=== PATIENT | male | born 1955 ===

== ENCOUNTER 2020-03-02 12:05 | Outpatient (REF) | payer MEDICAID, SELFPAY ==
[2020-03-02 14:13] LABS: Estimated Average Glucose 117 mg/dL; Hemoglobin A1c % 5.7 %
[2020-03-02 14:39] LABS: Alanine Aminotransferase 21 U/L (0-40); Albumin Level 4.8 g/dL (3.5-5.0); Alkaline Phosphatase 63 U/L (39-117); Anion Gap 16 (12-20); Aspartate Amino Transferase 20 U/L (5-37); Bilirubin Direct 0.3 mg/dL (0.0-0.5); Bilirubin Total 0.7 mg/dL (0.0-1.0); Blood Urea Nitrogen 11 mg/dL (9-16); Calcium 9.8 mg/dL (8.4-10.2); Carbon Dioxide 26 mmol/L (22-29); Chloride 102 mmol/L (96-108); Estimated Glomerular Filt Rate > 60; Glucose Random 99 mg/dL (60-115); Potassium 4.8 mmol/l (3.3-5.1); Sodium 139 mmol/L (135-145); Total Protein 7.8 g/dL (6.5-8.0)
== END 2020-03-02 12:06 | disposition home or self-care (01) ==
LOC: HO.HMGCLDS 12:05
PROVIDERS: PCP Internal Medicine; Visit Provider Internal Medicine
DX: E78.9 Disorder of lipoprotein metabolism, unspecified (principal); I10 Essential (primary) hypertension; R73.01 Impaired fasting glucose
CPT/HCPCS: 36415; 80048; 80076; 83036

== ENCOUNTER 2020-08-10 07:59 | Outpatient (REF) | payer MEDICAID, SELFPAY ==
[2020-08-10 12:03] LABS: Alanine Aminotransferase 32 U/L (0-40); Albumin Level 4.6 g/dL (3.5-5.0); Alkaline Phosphatase 61 U/L (39-117); Anion Gap 16 (12-20); Aspartate Amino Transferase 18 U/L (5-37); Bilirubin Total 0.9 mg/dL (0.0-1.0); Blood Urea Nitrogen 10 mg/dL (9-16); Calcium 9.8 mg/dL (8.4-10.2); Carbon Dioxide 23 mmol/L (22-29); Chloride 106 mmol/L (96-108); Cholesterol 189 mg/dL; Estimated Glomerular Filt Rate > 60; Glucose Fasting 113 mg/dL (60-99); HDL Cholesterol 43 mg/dL; LDL Cholesterol Calculated 114 mg/dl; Potassium 4.6 mmol/L (3.3-5.1); Sodium 140 mmol/L (135-145); Total Protein 7.7 g/dL (6.5-8.0); Triglycerides 162 mg/dL
== END 2020-08-10 08:00 | disposition home or self-care (01) ==
LOC: HO.HMGCLDS 07:59
PROVIDERS: PCP Internal Medicine; Visit Provider Internal Medicine
DX: I10 Essential (primary) hypertension (principal); E78.9 Disorder of lipoprotein metabolism, unspecified; R73.01 Impaired fasting glucose
CPT/HCPCS: 36415; 80053; 80061

== ENCOUNTER 2021-05-04 07:57 | Outpatient (REF) | payer MEDICAID, SELFPAY ==
[2021-05-04 08:58] LABS: Alanine Aminotransferase 26 U/L (0-40); Albumin Level 4.6 g/dL (3.5-5.0); Alkaline Phosphatase 53 U/L (39-117); Anion Gap 13 (12-20); Aspartate Amino Transferase 18 U/L (5-37); Bilirubin Total 0.9 mg/dL (0.0-1.0); Blood Urea Nitrogen 8 mg/dL (9-16); Calcium 10.2 mg/dL (8.4-10.2); Carbon Dioxide 27 mmol/L (22-29); Chloride 105 mmol/L (96-108); Cholesterol 173 mg/dL; Estimated Glomerular Filt Rate > 60; Glucose Fasting 133 mg/dL (60-99); HDL Cholesterol 44 mg/dL; LDL Cholesterol Calculated 109 mg/dl; Potassium 4.7 mmol/L (3.3-5.1); Sodium 140 mmol/L (135-145); Total Protein 7.5 g/dL (6.5-8.0); Triglycerides 104 mg/dL
[2021-05-08 13:36] LABS: Vitamin D 25-OH, D2 <4 ng/mL; Vitamin D 25-OH, D3 46 ng/mL; Vitamin D 25-OH, Total 46 ng/mL (30-100)
== END 2021-05-04 07:58 | disposition home or self-care (01) ==
LOC: HO.LAB 07:57
PROVIDERS: PCP Internal Medicine; Visit Provider Internal Medicine
DX: R73.01 Impaired fasting glucose (principal); E78.5 Hyperlipidemia, unspecified; E55.9 Vitamin D deficiency, unspecified
CPT/HCPCS: 36415; 80053; 80061; 82306

== ENCOUNTER 2021-10-17 08:05 | Outpatient (REF) | payer MEDICAID, SELFPAY ==
[2021-10-17 09:48] LABS: Alanine Aminotransferase 25 U/L (0-40); Albumin Level 4.6 g/dL (3.5-5.0); Alkaline Phosphatase 54 U/L (39-117); Anion Gap 16 (12-20); Aspartate Amino Transferase 18 U/L (5-37); Bilirubin Total 0.6 mg/dL (0.0-1.0); Blood Urea Nitrogen 11 mg/dL (9-16); Calcium 9.6 mg/dL (8.4-10.2); Carbon Dioxide 24 mmol/L (22-29); Chloride 105 mmol/L (96-108); Cholesterol 191 mg/dL; Estimated Glomerular Filt Rate > 60; Glucose Fasting 130 mg/dL (60-99); HDL Cholesterol 48 mg/dL; LDL Cholesterol Calculated 118 mg/dl; Potassium 4.5 mmol/L (3.3-5.1); Sodium 140 mmol/L (135-145); Total Protein 7.6 g/dL (6.5-8.0); Triglycerides 125 mg/dL
[2021-10-17 10:11] LABS: Vitamin D 25-OH Total 44.1 ng/mL (>30)
== END 2021-10-17 08:06 | disposition home or self-care (01) ==
LOC: HO.LAB 08:05
PROVIDERS: PCP Internal Medicine; Visit Provider Internal Medicine
DX: E78.5 Hyperlipidemia, unspecified (principal); R73.02 Impaired glucose tolerance (oral); E55.9 Vitamin D deficiency, unspecified
CPT/HCPCS: 36415; 80053; 80061; 82306

== ENCOUNTER 2022-02-25 07:19 | Outpatient (REF) | payer MEDICAID, SELFPAY ==
[2022-02-25 08:30] LABS: Alanine Aminotransferase 21 U/L (0-40); Albumin Level 4.4 g/dL (3.5-5.0); Alkaline Phosphatase 51 U/L (39-117); Anion Gap 13 (12-20); Aspartate Amino Transferase 19 U/L (5-37); Bilirubin Total 0.9 mg/dL (0.0-1.0); Blood Urea Nitrogen 14 mg/dL (9-16); Calcium 9.9 mg/dL (8.4-10.2); Carbon Dioxide 25 mmol/L (22-29); Chloride 105 mmol/L (96-108); Cholesterol 171 mg/dL; Estimated Glomerular Filt Rate > 60; Glucose Fasting 134 mg/dL (60-99); HDL Cholesterol 44 mg/dL; LDL Cholesterol Calculated 104 mg/dl; Potassium 4.4 mmol/L (3.3-5.1); Sodium 139 mmol/L (135-145); Total Protein 7.4 g/dL (6.5-8.0); Triglycerides 116 mg/dL
[2022-02-25 08:50] LABS: Vitamin D 25-OH Total 36.8 ng/mL (>30)
== END 2022-02-25 07:20 | disposition home or self-care (01) ==
LOC: HO.LAB 07:19
PROVIDERS: PCP Internal Medicine; Visit Provider Internal Medicine
DX: E78.00 Pure hypercholesterolemia, unspecified (principal); E55.9 Vitamin D deficiency, unspecified; E78.5 Hyperlipidemia, unspecified
CPT/HCPCS: 36415; 80053; 80061; 82306

== ENCOUNTER 2022-06-30 08:00 | Outpatient (REF) | payer MEDICAID, SELFPAY ==
[2022-06-30 09:05] LABS: Alanine Aminotransferase 19 U/L (0-40); Albumin Level 4.6 g/dL (3.5-5.0); Alkaline Phosphatase 55 U/L (39-117); Anion Gap 15 (12-20); Aspartate Amino Transferase 15 U/L (5-37); Bilirubin Total 0.8 mg/dL (0.0-1.0); Blood Urea Nitrogen 10 mg/dL (9-16); Calcium 10.1 mg/dL (8.4-10.2); Carbon Dioxide 26 mmol/L (22-29); Chloride 107 mmol/L (96-108); Cholesterol 281 mg/dL; Estimated Glomerular Filt Rate > 60; Glucose Fasting 128 mg/dL (60-99); HDL Cholesterol 45 mg/dL; LDL Cholesterol Calculated 206 mg/dl; Potassium 4.6 mmol/L (3.3-5.1); Sodium 143 mmol/L (135-145); Total Protein 7.4 g/dL (6.5-8.0); Triglycerides 151 mg/dL
[2022-06-30 09:22] LABS: Vitamin D 25-OH Total 60.2 ng/mL (>30)
[2022-06-30 10:22] LABS: Microalbum/Creatinine Ratio Ur 24.7 ug/mg cr
== END 2022-06-30 08:01 | disposition home or self-care (01) ==
LOC: HO.LAB 08:00
PROVIDERS: PCP Internal Medicine; Visit Provider Internal Medicine
DX: E11.9 Type 2 diabetes mellitus without complications (principal); E78.5 Hyperlipidemia, unspecified; E55.9 Vitamin D deficiency, unspecified
CPT/HCPCS: 36415; 80053; 80061; 82043; 82306

== ENCOUNTER 2022-10-31 08:01 | Outpatient (REF) | payer MEDICAID, SELFPAY ==
[2022-10-31 08:51] LABS: Alanine Aminotransferase 22 U/L (0-40); Albumin Level 4.5 g/dL (3.5-5.0); Alkaline Phosphatase 54 U/L (39-117); Anion Gap 10 (12-20); Aspartate Amino Transferase 18 U/L (5-37); Bilirubin Total 0.9 mg/dL (0.0-1.0); Blood Urea Nitrogen 11 mg/dL (9-16); Calcium 9.9 mg/dL (8.4-10.2); Carbon Dioxide 27 mmol/L (22-29); Chloride 107 mmol/L (96-108); Cholesterol 235 mg/dL (<200); Estimated Glomerular Filt Rate > 60; Glucose Fasting 122 mg/dL (60-99); HDL Cholesterol 48 mg/dL (>40); LDL Cholesterol Calculated 155 mg/dL (<100); Potassium 4.2 mmol/L (3.3-5.1); Sodium 140 mmol/L (135-145); Total Protein 7.5 g/dL (6.5-8.0); Triglycerides 161 mg/dL (<150)
[2022-10-31 08:58] LABS: Vitamin D 25-OH Total 47.7 ng/mL (>30)
[2022-10-31 12:09] LABS: Creatinine Urine 215.52 mg/dL; Microalbum/Creatinine Ratio Ur 8.3 ug/mg cr (<30)
== END 2022-10-31 08:02 | disposition home or self-care (01) ==
LOC: HO.LAB 08:01
PROVIDERS: PCP Internal Medicine; Visit Provider Internal Medicine
DX: E55.9 Vitamin D deficiency, unspecified (principal); E11.9 Type 2 diabetes mellitus without complications; E78.5 Hyperlipidemia, unspecified
CPT/HCPCS: 36415; 80053; 80061; 82043; 82306; 82570

== ENCOUNTER 2022-11-04 13:42 | Outpatient (AMB) | payer MEDICAID, SELFPAY ==
--- NOTE | 2022-11-04 13:44 | A.OFFPC_ITS ---
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 Accompanied by: Self / Same As Patient Allergies amlodipine Adverse Reaction (Intermediate, Verified 11/04/22 13:55) swelling of feet Medication List - Last Reconciled 11/04/22 by Mag Vila MD blood pressure monitor As directed blood sugar diagnostic (FreeStyle Lite Strips) As directed blood-glucose meter (FreeStyle Lite Meter kit) As directed cholecalciferol (vitamin D3) 25 mcg PO DAILY 90 days ibuprofen 800 mg PO Q8H PRN 30 days lancets (FreeStyle Lancets) As directed losartan 25 mg PO DAILY 90 days metformin 500 mg PO DAILY 90 days rosuvastatin 40 mg (2 x 20 mg) PO BEDTIME 90 days Tobacco use date assessed: 03/03/22 Fall risk assessment: No Falls in past year Last assessed Fall Risk: 11/04/22 Dental Screening Dental Screen Date: 11/04/22 Did you have a dental visit in the last 12 months?: Yes Did you have a dental problem in the last 6 months where you did not have access to dental care?: No Was dental information given to patient?: Patient has dentist HPI HPI Comments History of Present Illness Details This is a 67-year-old male with diabetes mellitus type 2, hypertension and pure hypercholesterolemia that complains of low back pain radiating to the right leg and associated with right leg numbness that has been present for few months. No fever, bowel or bladder incontinence. Will order x-ray and start physical therapy. A1c within goal. Blood pressure borderline normal to elevated. LDL has improved and is not on goal. Patient wants to continue low- cholesterol diet and keep rosuvastatin at 40 mg. He does not want to add or change rosuvastatin. No chest pain or shortness of breath. [facility] Medical History (Updated 11/04/22 @ 14:03 by Mag Vila MD) Lumbar pain Pure hypercholesterolemia Neck pain Hypovitaminosis D Surgical History No pertinent past surgical history Family History Father No problems noted. Mother Cancer of kidney Social History Housing: Apartment Alcohol intake: current Alcohol intake frequency: holidays/special occasions only Alcohol type: beer Patient Tobacco Use Status: Former Tobacco user Tobacco use type: Cigarette e-Cigarette/Vaping Use: Never Used Second Hand Smoke Exposure: No service: No Current occupational status: employed Current occupational exposures/hazards: No Cognitive needs: No Hearing needs: No Vision needs: Yes Questionnaire Thrive Questionnaire Date Thrive assessed: 03/03/22 JEFFREY-7 AMB Questionnaire JEFFREY-7 Date JEFFREY - 7 assessed: 03/03/22 Source: Developed by Drs. Dick Mary, Maile House, Aurelio Jacobs and colleagues, with an educational mariana from [employer]. Review of Systems Const All systems reviewed & are unremarkable except as noted in HPI and below Eyes Reports no additional complaints, Denies change in vision and Denies other visual disturbances Card Denies chest pain at rest, Denies chest pain with activity, Denies edema, Denies irregular heart rhythm, Denies claudication, Denies dyspnea, Denies dyspnea on exertion, Denies orthopnea, Denies paroxysmal nocturnal dyspnea and Denies slow heart rate Resp Denies cough, Denies dyspnea and Denies dyspnea on exertion GI Denies abdominal pain, Denies change in bowel habits, Denies excessive flatus, Denies nausea and Denies vomiting Denies urinary hesitancy, Denies urinary incontinence and Denies urinary urgency Musc Denies abnormal gait, Denies atrophy, Denies deformity and Denies limited range of motion Skin/Breast Denies bleeding lesions, Denies changing lesions and Denies rash Neuro Denies abnormal gait and Denies lack of coordination Physical exam (Primary Care) Vital Signs: Last Vital Signs BP 144/90 H 11/04/22 13:45 BMI result Body Mass Index 25.1 Tobacco/Smoking Status: Tobacco use Status Tobacco use date assessed 03/03/22 11/04/22 13:51 Patient Tobacco Use Status Former Tobacco user 11/04/22 13:51 Tobacco use type Cigarette 11/04/22 13:51 e-Cigarette/Vaping Use Never Used 11/04/22 13:51 Thrive Assessment: Date of Thrive Assessment Date Thrive assessed 03/03/22 11/04/22 13:51 Eyes General: appearance normal, both eyes and all related structures Eyelids: Yes eyelids normal Conjunctivae: conjunctivae normal Neck Neck: Yes normal visual inspection and Yes supple Resp Effort & Inspection: normal respiratory effort Auscultation: clear to auscultation bilaterally Cardio Jugular venous distension: no JVD Rate: regular rate Rhythm: regular rhythm Heart sounds: S1 normal heart sound present and S2 normal heart sound present Extrem General: Yes full ROM Results AMB Hemoglobin A1c AMB Hemoglobin A1c 5.6 % Last Edit by OMI Sullivan on 11/04/22 13:5 5 Assessment and Plan Assessment & Plan (1) Diabetes mellitus: Code(s): E11.9 - Type 2 diabetes mellitus without complications Plan: Continue metformin. A1c goal is equal or less than 7%. (2) Pure hypercholesterolemia: Code(s): E78.00 - Pure hypercholesterolemia, unspecified Plan: Continue statins. Continue low-cholesterol diet. LDL goal is less than 70. (3) Right sided sciatica: Code(s): M54.31 - Sciatica, right side Plan: X-ray ordered. Start physical therapy. (4) Hypertension, essential: Code(s): I10 - Essential (primary) hypertension Plan: Continue losartan. Blood pressure goal is equal or less than 130/80. Orders: Orders AMB Hemoglobin A1c Today E11.9 - Type 2 diabetes mellitus without complications Comprehensive [place]. Panel Fast 4 Months E11.9 - Type 2 diabetes mellitus without complications Vitamin D 25-OH Total 4 Months E55.9 - Vitamin D deficiency, unspecified XR lumbar spine 2-3V Today M54.31 - Sciatica, right side, M54.50 - Low back pain, unspecified Lipid Panel 4 Months E78.5 - Hyperlipidemia, unspecified Coding Level of Care Code Est Pt Level 4 (09070) Diagnoses Diabetes mellitus E11.9 Pure hypercholesterolemia E78.00 Right sided sciatica M54.31 Hypertension, essential I10 Time Spent (min) 24
[2022-11-04 13:45] VITALS: BP 144/90; BMI 25.1
[2022-11-04 14:37] VITALS: BP 140/90
== END 2022-11-04 14:07 | disposition home or self-care (01) ==
PROVIDERS: Visit Provider Internal Medicine
DX: E11.9 Type 2 diabetes mellitus without complications (principal); E78.00 Pure hypercholesterolemia, unspecified; M54.31 Sciatica, right side; I10 Essential (primary) hypertension
CPT/HCPCS: 83036; 99214

== ENCOUNTER 2023-03-04 06:36 | Outpatient (REF) | payer MEDICAID, SELFPAY ==
[2023-03-04 08:32] LABS: Alanine Aminotransferase 21 U/L (0-40); Albumin Level 4.7 g/dL (3.5-5.0); Alkaline Phosphatase 47 U/L (39-117); Anion Gap 12 (12-20); Aspartate Amino Transferase 19 U/L (5-37); Bilirubin Total 0.5 mg/dL (0.0-1.0); Blood Urea Nitrogen 11 mg/dL (9-16); Calcium 9.9 mg/dL (8.4-10.2); Carbon Dioxide 25 mmol/L (22-29); Chloride 106 mmol/L (96-108); Cholesterol 159 mg/dL (<200); Estimated Glomerular Filt Rate > 60; Glucose Fasting 101 mg/dL (60-99); HDL Cholesterol 50 mg/dL (>40); LDL Cholesterol Calculated 91 mg/dL (<100); Sodium 139 mmol/L (135-145); Total Protein 7.8 g/dL (6.5-8.0); Triglycerides 94 mg/dL (<150)
== END 2023-03-04 06:37 | disposition home or self-care (01) ==
LOC: HO.LAB 06:36
PROVIDERS: PCP Internal Medicine; Visit Provider Internal Medicine
DX: E11.9 Type 2 diabetes mellitus without complications (principal); E55.9 Vitamin D deficiency, unspecified; E78.5 Hyperlipidemia, unspecified
CPT/HCPCS: 36415; 80053; 80061; 82306

== ENCOUNTER 2023-03-05 13:11 | Outpatient (AMB) | payer MEDICAID, SELFPAY ==
[2023-03-05 13:12] VITALS: BP 164/78; BMI 25.3
--- NOTE | 2023-03-05 13:12 | MHC.PC.OV ---
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 Accompanied by: Self / Same As Patient Allergies amlodipine Adverse Reaction (Intermediate, Verified 03/05/23 13:25) swelling of feet Medication List - Last Reconciled 03/05/23 by Mag Vila MD blood pressure monitor As directed blood sugar diagnostic (FreeStyle Lite Strips) As directed blood-glucose meter (FreeStyle Lite Meter kit) As directed cholecalciferol (vitamin D3) 25 mcg PO DAILY 90 days ibuprofen 800 mg PO Q8H PRN 30 days lancets (FreeStyle Lancets) As directed losartan 25 mg PO DAILY 90 days metformin 500 mg PO DAILY 90 days rosuvastatin 40 mg PO BEDTIME 90 days Tobacco use date assessed: 03/05/23 Fall risk assessment: No Falls in past year Last assessed Fall Risk: 03/05/23 Dental Screening Dental Screen Date: 03/05/23 Did you have a dental visit in the last 12 months?: Yes Did you have a dental problem in the last 6 months where you did not have access to dental care?: No Was dental information given to patient?: Patient has dentist HPI HPI Comments History of Present Illness Details This is a 67-year-old male with diabetes mellitus type 2, hypertension, pure hypercholesterolemia and low vitamin-D that complains of low back pain that sometimes radiates to the right leg. He denies any fever, bowel or bladder incontinence. Has not received physical therapy yet and I will make an ordered. A1c within goal. Blood pressure elevated and it will be recheck with nurse navigator in 3 weeks. Cholesterol has markedly improved but still LDL is not within goal and I will add Zetia. On vitamin-D supplements for low vitamin-D. [facility] Medical History (Updated 03/05/23 @ 17:24 by Mag Vila MD) Lumbar pain Pure hypercholesterolemia Neck pain Hypovitaminosis D Surgical History No pertinent past surgical history Family History Father No problems noted. Mother Cancer of kidney Social History Housing: Apartment Alcohol intake: current Alcohol intake frequency: holidays/special occasions only Alcohol type: beer Patient Tobacco Use Status: Former Tobacco user Tobacco use type: Cigarette e-Cigarette/Vaping Use: Never Used Second Hand Smoke Exposure: No service: No Current occupational status: employed Current occupational exposures/hazards: No Cognitive needs: No Hearing needs: No Vision needs: Yes Questionnaire PHQ-9 Over the last 2 weeks, how often have you been bothered by any of the following problems? 1. Little interest or pleasure in doing things: not at all 2. Feeling down, depressed, or hopeless: not at all 3. Trouble falling or staying asleep, or sleeping too much: not at all 4. Feeling tired or having little energy: not at all 5. Poor appetite or overeating: not at all 6. Feeling bad about yourself - or that you are a failure or have let yourself or your family down: not at all 7. Trouble concentrating on things, such as reading the newspaper or watching television: not at all 8. Moving or speaking so slowly that other people could have noticed. Or the opposite - being so fidgety or restless that you have been moving around a lot more than usual: not at all 9. Thoughts that you would be better off or of hurting yourself in some way: not at all Total score: 0 Depression Screening Interpretation: Negative Depression Screening Done: Yes 98166 - PHQ-9 Billing: Yes Source: Developed by Drs. Dick Mary, Maile House, Aurelio Jacobs and colleagues, with an educational mariana from [employer]. Thrive Questionnaire Date Thrive assessed: 03/05/23 I am a: Patient What is your living situation today?: I have a steady place to live Within the past 12 months, did the food you bought not last and you didn't have the money to get more?: Never true Within the past 12 months, did you worry whether your food would run out before you got money to buy more?: Never true Do you have trouble paying for medicines?: No Do you have trouble getting transportation to medical appointments?: No Do you have trouble paying your heating and electricity bill?: No Do you have trouble taking care of your child, family member or friend?: No Do you have trouble with day-to-day activities such as bathing, preparing meals, shopping, managing finances, etc.?: No Are you currently unemployed and looking for a job?: No Are you interested in more education?: No Please select the resources that you would like help with: None Currently or been in a relationship where the following occur: no concerns reported THRIVE Score: 0 AUDIT C Alcohol Use Questionnaire (AUDIT-C) 1. How often do you have a drink containing alcohol?: Monthly or less 2. How many drinks containing alcohol do you have on a typical day when you are drinking?: 1 or 2 3. How often do you have six or more drinks on one occasion?: Never Total Score: 1 JEFFREY-7 AMB Questionnaire JEFFREY-7 Date JEFFREY - 7 assessed: 03/05/23 Feeling nervous, anxious, or on edge: 0 = Not at all Not being able to stop or control worryin = Not at all Worrying too much about different things: 0 = Not at all Trouble relaxin = Not at all Being so restless that it is hard to sit still: 0 = Not at all Becoming easily annoyed or irritable: 0 = Not at all Feeling afraid as if something awful might happen: 0 = Not at all Total JEFFREY-7 score (0-4 normal; 5-9 mild; 10-14 moderate; 15-21 severe): 0 Source: Developed by Drs. Dick Mary, Maile House, Aurelio Jacobs and colleagues, with an educational mariana from [employer]. JEFFREY-7 Assessment Billing JEFFREY-7 Assessment Tool: JEFFREY-7 Assessment 60076 Review of Systems Const All systems reviewed & are unremarkable except as noted in HPI and below Eyes Reports no additional complaints, Denies change in vision and Denies other visual disturbances Card Denies chest pain at rest, Denies chest pain with activity, Denies edema, Denies irregular heart rhythm, Denies claudication, Denies dyspnea, Denies dyspnea on exertion, Denies orthopnea, Denies paroxysmal nocturnal dyspnea and Denies slow heart rate Resp Denies cough, Denies dyspnea and Denies dyspnea on exertion GI Denies abdominal pain, Denies change in bowel habits, Denies excessive flatus, Denies nausea and Denies vomiting Denies urinary hesitancy, Denies urinary incontinence and Denies urinary urgency Musc Denies abnormal gait, Denies atrophy, Denies deformity and Denies limited range of motion Skin/Breast Denies bleeding lesions, Denies changing lesions and Denies rash Neuro Denies abnormal gait, Denies behavioral changes and Denies lack of coordination Psych Denies behavioral changes Physical exam (Primary Care) Vital Signs: Last Vital Signs BP 160/70 H 03/05/23 13:30 BMI result Body Mass Index 25.3 Tobacco/Smoking Status: Tobacco use Status Tobacco use date assessed 03/05/23 03/05/23 13:19 Patient Tobacco Use Status Former Tobacco user 03/05/23 13:19 Tobacco use type Cigarette 03/05/23 13:19 e-Cigarette/Vaping Use Never Used 03/05/23 13:19 PHQ-9: PHQ-9 Score PHQ-9: Total score 0 03/05/23 13:27 Depression Screening Interpretation: Negative Thrive Assessment: Date of Thrive Assessment Date Thrive assessed 03/05/23 03/05/23 13:19 Currently or been in a relationship where the following occur: no concerns reported Eyes General: appearance normal, both eyes and all related structures Eyelids: Yes eyelids normal Conjunctivae: conjunctivae normal Neck Neck: Yes normal visual inspection and Yes supple Resp Effort & Inspection: normal respiratory effort Auscultation: clear to auscultation bilaterally Cardio Jugular venous distension: no JVD Rate: regular rate Rhythm: regular rhythm Heart sounds: S1 normal heart sound present and S2 normal heart sound present Extrem General: Yes full ROM Office Procedures Flu Questionnaire Does the patient have a severe egg allergy?: No Results AMB Hemoglobin A1c AMB Hemoglobin A1c 5.6 % Last Edit by OMI Sullivan on 03/05/23 13:22 Immunizations flu vacc [id number] 6mos up(PF) 60 mcg(15 mcgx4)/0.5 mL IM syringe Performing Provider: Mag Vila MD 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 A1c goal is equal or less than 7%. (2) Right sided sciatica: Code(s): M54.31 - Sciatica, right side Plan: Continue Tylenol as needed. Start physical therapy. (3) Pure hypercholesterolemia: Code(s): E78.00 - Pure hypercholesterolemia, unspecified Plan: Continue rosuvastatin. Start Zetia. LDL goal is less than 70. (4) Hypertension, essential: Code(s): I10 - Essential (primary) hypertension Plan: Continue losartan. Blood pressure goal is equal or less than 130/80. Recheck blood pressure with nurse navigator in 3 weeks. (5) Hypovitaminosis D: Code(s): E55.9 - Vitamin D deficiency, unspecified Plan: Continue vitamin-D supplements. Orders: Orders AMB Hemoglobin A1c Today E11.9 - Type 2 diabetes mellitus without complications Comprehensive [place]. Panel Fast 4 Months E11.9 - Type 2 diabetes mellitus without complications PT Evaluation and Treatment 4 Months M54.31 - Sciatica, right side Influenza [id number] Immunization Today Z23 - Encounter for immunization Lipid Panel 4 Months E78.5 - Hyperlipidemia, unspecified Microalbumin, Random (w Creat) 4 Months E11.9 - Type 2 diabetes mellitus without complications Vitamin D 25-OH Total 4 Months E55.9 - Vitamin D deficiency, unspecified Medications: New ezetimibe 10 mg PO DAILY 90 days 90 tabs 1RF E78.00 - Pure hypercholesterolemia, unspecified acetaminophen 1,000 mg (2 x 500 mg) PO Q6H 30 days PRN 240 tabs 0RF fever Discontinued ibuprofen Discontinued Reason: Patient Completed Course 800 mg PO Q8H 30 days PRN 90 tabs 1RF pain Coding Level of Care Code Est Pt Level 4 (33655) Diagnoses Type 2 diabetes mellitus without complication, without long-term current use of insulin E11.9 Diabetes mellitus type: type 2 Diabetes mellitus residential insulin use: without residential use Diabetes mellitus complication status: without complication Right sided sciatica M54.31 Pure hypercholesterolemia E78.00 Hypertension, essential I10 Hypovitaminosis D E55.9 Additional Codes JEFFREY-7 Assessment Billing - JEFFREY-7 Assessment Tool: JEFFREY-7 Assessment 09892 ([id number]) Time Spent (min) 23
[2023-03-05 13:30] VITALS: BP 160/70
== END 2023-03-05 13:35 | disposition home or self-care (01) ==
PROVIDERS: PCP Internal Medicine; Visit Provider Internal Medicine
DX: E11.9 Type 2 diabetes mellitus without complications (principal); M54.31 Sciatica, right side; E78.00 Pure hypercholesterolemia, unspecified; I10 Essential (primary) hypertension; E55.9 Vitamin D deficiency, unspecified
CPT/HCPCS: 83036; 99214

== ENCOUNTER 2023-05-13 13:00 | Outpatient (RCR) | payer MEDICAID, SELFPAY ==
--- NOTE | 2023-04-27 15:20 | MHC.PT.EP ---
[facility] [place] Office [place] [facility] [place] [facility] [address] Jim Doyle [address] [phone] F: [phone] F: [phone] F: [phone] F: [phone] Physical Therapy Plan of Care Date of Evaluation: 04/27/23 Date of Surgery: Diagnosis: R sided sciatica. 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 Pt is deemed an appropriate candidate to receive skilled PT services to address their physical impairments in order to improve their functional ability. Frequency and Duration: The patient will be seen 2 x/ wk x 3 wks. Short Term Goals: Initiate home program. Improve baseline pain to < 4/10; initial: 6/10. Fdc Goals: I with home program. Pt will report no longer disturbed of sleep d/t LBP; initial: 1/4 disturbed night's sleep. Improve Jeremy by at least 9 points. R glute referred Sx abolished. Treatment Plan: Modalities to reduce pain, spasms and effusion. Manual therapy to restore motion and function. Therapeutic exercise to improve strength and flexibility. Neuromuscular re-education for posture and balance. Therapeutic activities to return to functional activities of daily living. Electronically signed by: Mayank Hammonds PT. Please sign and return to therapist. Thank you for your referral.
--- NOTE | 2023-07-27 08:22 | MHC.PT.DC ---
[facility] [place] Office [place] Office [place] Office [address] Jim Doyle [address] [phone] F: [phone] F: [phone] F: [phone] F: [phone] Physical Therapy Discharge Report Diagnosis: R sided sciatica. Date of Surgery: Date of Evaluation: 04/27/23 Date of Discharge: 07/27/23 Treatments to Date: 5 Cancellations to Date: 1 No Shows to Date: 1 Discharge Status: Patient Elected to Stop Discharge Summary: . Electronically signed by: Mayank Hammonds PT. Please sign and return to therapist. Thank you for your referral.
== END 2023-07-27 08:21 | disposition home or self-care (01) ==
LOC: HO.PT 13:00
PROVIDERS: PCP Internal Medicine; Visit Provider Internal Medicine
DX: M54.31 Sciatica, right side (principal)
CPT/HCPCS: 97110; 97140; 97161

== ENCOUNTER 2023-06-27 09:36 | Outpatient (REF) | payer MEDICAID, SELFPAY ==
[2023-06-27 11:17] LABS: Alanine Aminotransferase 32 U/L (0-40); Albumin Level 4.6 g/dL (3.5-5.0); Alkaline Phosphatase 54 U/L (39-117); Anion Gap 12 (12-20); Aspartate Amino Transferase 21 U/L (5-37); Bilirubin Total 0.7 mg/dL (0.0-1.0); Blood Urea Nitrogen 12 mg/dL (9-16); Calcium 9.8 mg/dL (8.4-10.2); Carbon Dioxide 27 mmol/L (22-29); Chloride 106 mmol/L (96-108); Cholesterol 148 mg/dL (<200); Estimated Glomerular Filt Rate > 60; Glucose Fasting 120 mg/dL (60-99); HDL Cholesterol 52 mg/dL (>40); LDL Cholesterol Calculated 81 mg/dL (<100); Sodium 141 mmol/L (135-145); Total Protein 7.5 g/dL (6.5-8.0); Triglycerides 78 mg/dL (<150)
[2023-06-27 11:34] LABS: Vitamin D 25-OH Total 38.2 ng/mL (>30)
[2023-06-27 12:01] LABS: Creatinine Urine 102.03 mg/dL; Microalbum/Creatinine Ratio Ur 11.7 ug/mg cr (<30)
== END 2023-06-27 09:37 | disposition home or self-care (01) ==
LOC: HO.LAB 09:36
PROVIDERS: PCP Internal Medicine; Visit Provider Internal Medicine
DX: E11.9 Type 2 diabetes mellitus without complications (principal); E78.5 Hyperlipidemia, unspecified; E55.9 Vitamin D deficiency, unspecified
CPT/HCPCS: 36415; 80053; 80061; 82043; 82306; 82570

== ENCOUNTER 2023-06-29 16:17 | Outpatient (AMB) | payer MEDICAID, SELFPAY ==
[2023-06-29 16:19] VITALS: BP 152/80; BMI 25.8
--- NOTE | 2023-06-29 16:19 | MHC.PC.OV ---
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 Accompanied by: Self / Same As Patient Allergies amlodipine Adverse Reaction (Intermediate, Verified 06/29/23 16:29) swelling of feet Medication List - Last Reconciled 06/29/23 by Mag Vila MD acetaminophen 1,000 mg (2 x 500 mg) PO Q6H PRN 30 days blood pressure monitor As directed blood sugar diagnostic (FreeStyle Lite Strips) As directed blood-glucose meter (FreeStyle Lite Meter kit) As directed cholecalciferol (vitamin D3) 25 mcg PO DAILY 90 days ezetimibe 10 mg PO DAILY 90 days lancets (FreeStyle Lancets) As directed losartan 50 mg PO DAILY 90 days metformin 500 mg PO DAILY 90 days rosuvastatin 40 mg PO BEDTIME 90 days Tobacco use date assessed: 03/05/23 Fall risk assessment: No Falls in past year Last assessed Fall Risk: 06/29/23 Dental Screening Dental Screen Date: 03/05/23 HPI HPI Comments History of Present Illness Details This is a 67-year-old male with diabetes mellitus type 2 that comes for his physical exam. A1c within goal. Last diabetic eye exam was 2023. Last colonoscopy was [address] Stone and will be referred. No chest pain or shortness of breath. Labs were discussed. LDL is close to goal. Blood pressure elevated and will be recheck in 3 weeks by nurse navigator. [facility] Medical History Lumbar pain Pure hypercholesterolemia Neck pain Hypovitaminosis D Surgical History No pertinent past surgical history Family History Father No problems noted. Mother Cancer of kidney Social History Housing: Apartment Alcohol intake: current Alcohol intake frequency: holidays/special occasions only Alcohol type: beer Patient Tobacco Use Status: Former Tobacco user Tobacco use type: Cigarette e-Cigarette/Vaping Use: Never Used Second Hand Smoke Exposure: No service: No Current occupational status: employed Current occupational exposures/hazards: No Cognitive needs: No Hearing needs: No Vision needs: Yes Questionnaire Thrive Questionnaire Date Thrive assessed: 03/05/23 JEFFREY-7 AMB Questionnaire JEFFREY-7 Date JEFFREY - 7 assessed: 03/05/23 Source: Developed by Drs. Dick Mary, Maile House, Aurelio Jacobs and colleagues, with an educational mariana from [employer]. Review of Systems Const All systems reviewed & are unremarkable except as noted in HPI and below Eyes Reports no additional complaints, Denies change in vision and Denies other visual disturbances Card Denies chest pain at rest, Denies chest pain with activity, Denies edema, Denies irregular heart rhythm, Denies claudication, Denies dyspnea, Denies dyspnea on exertion, Denies orthopnea, Denies paroxysmal nocturnal dyspnea and Denies slow heart rate Resp Denies cough, Denies dyspnea and Denies dyspnea on exertion GI Denies abdominal pain, Denies change in bowel habits, Denies excessive flatus, Denies nausea and Denies vomiting Denies urinary hesitancy, Denies urinary incontinence and Denies urinary urgency Musc Denies abnormal gait, Denies atrophy, Denies deformity and Denies limited range of motion Neuro Denies abnormal gait and Denies lack of coordination Physical exam (Primary Care) Vital Signs: Last Vital Signs BP 152/80 H 06/29/23 16:19 BMI result Body Mass Index 25.8 Tobacco/Smoking Status: Tobacco use Status Tobacco use date assessed 03/05/23 06/29/23 16:22 Patient Tobacco Use Status Former Tobacco user 06/29/23 16:22 Tobacco use type Cigarette 06/29/23 16:22 e-Cigarette/Vaping Use Never Used 06/29/23 16:22 Thrive Assessment: Date of Thrive Assessment Date Thrive assessed 03/05/23 06/29/23 16:22 Const Orientation/consciousness: patient oriented x3 HENMT Head: Yes normal to inspection, Yes normocephalic and Yes atraumatic Ears: external ears normal Eyes General: appearance normal, both eyes and all related structures Eyelids: Yes eyelids normal Conjunctivae: conjunctivae normal Neck Neck: Yes normal visual inspection and Yes supple Resp Effort & Inspection: normal respiratory effort Auscultation: clear to auscultation bilaterally Cardio Jugular venous distension: no JVD Rate: regular rate Rhythm: regular rhythm Heart sounds: S1 normal heart sound present and S2 normal heart sound present GI Inspection: Yes normal to inspection Palpation (GI): Soft to palpation and nontender Auscultation: normal bowel sounds Skin General skin exam: no rashes or lesions noted Neuro General: patient oriented x3 and no focal motor deficits Extrem General: Yes full ROM Psych Appearance: grossly normal Results AMB Hemoglobin A1c AMB Hemoglobin A1c 5.6 % Last Edit by OMI Sullivan on 06/29/23 16:31 Assessment and Plan Assessment & Plan (1) Physical exam: Code(s): Z00.00 - Encounter for general adult medical examination without abnormal findings Plan: Repeat in a year. (2) Diabetes mellitus: Code(s): E11.9 - Type 2 diabetes mellitus without complications Qualifiers: Diabetes mellitus type: type 2 Diabetes mellitus skilled nursing insulin use: without remote computer terminal operator use Diabetes mellitus complication status: without complication Qualified Code(s): E11.9 - Type 2 diabetes mellitus without complications Plan: Continue metformin. A1c goal is equal or less than 7%. Orders: Orders Lipid Panel 4 Months E78.5 - Hyperlipidemia, unspecified Vitamin D 25-OH Total 4 Months E55.9 - Vitamin D deficiency, unspecified Comprehensive [place]. Panel Fast 4 Months E11.9 - Type 2 diabetes mellitus without complications AMB Hemoglobin A1c Today E11.9 - Type 2 diabetes mellitus without complications Microalbumin, Random (w Creat) 4 Months E11.9 - Type 2 diabetes mellitus without complications Referrals Gastroenterology Referral Z12.11 - Encounter for screening for malignant neoplasm of colon Coding Level of Care Code Est Pt Prev Care >65y(89193) Diagnoses Physical exam Z00.00 Type 2 diabetes mellitus without complication, without long-term current use of insulin E11.9 Diabetes mellitus type: type 2 Diabetes mellitus skilled nursing insulin use: without remote computer terminal operator use Diabetes mellitus complication status: without complication Time Spent (min) 33
== END 2023-06-29 16:45 | disposition home or self-care (01) ==
PROVIDERS: PCP Internal Medicine; Visit Provider Internal Medicine
DX: Z00.00 Encounter for general adult medical examination without abnormal findings (principal); E11.9 Type 2 diabetes mellitus without complications
CPT/HCPCS: 83036; 99397

== ENCOUNTER 2023-11-23 08:32 | Outpatient (REF) | payer MEDICAID, SELFPAY ==
[2023-11-23 09:29] LABS: Creatinine Urine 126.35 mg/dL
[2023-11-23 09:31] LABS: Alanine Aminotransferase 23 U/L (0-40); Albumin Level 4.5 g/dL (3.5-5.0); Alkaline Phosphatase 52 U/L (39-117); Anion Gap 11 (12-20); Aspartate Amino Transferase 19 U/L (5-37); Bilirubin Total 0.8 mg/dL (0.0-1.0); Blood Urea Nitrogen 14 mg/dL (9-16); Calcium 9.7 mg/dL (8.4-10.2); Carbon Dioxide 28 mmol/L (22-29); Chloride 107 mmol/L (96-108); Cholesterol 136 mg/dL (<200); Estimated Glomerular Filt Rate > 60; Glucose Fasting 123 mg/dL (60-99); HDL Cholesterol 43 mg/dL (>40); LDL Cholesterol Calculated 74 mg/dL (<100); Potassium 4.7 mmol/L (3.3-5.1); Sodium 141 mmol/L (135-145); Total Protein 7.2 g/dL (6.5-8.0); Triglycerides 95 mg/dL (<150)
[2023-11-23 09:47] LABS: Vitamin D 25-OH Total 42.9 ng/mL (>30)
== END 2023-11-23 08:33 | disposition home or self-care (01) ==
LOC: HO.LAB 08:32
PROVIDERS: PCP Internal Medicine; Visit Provider Internal Medicine
DX: E11.9 Type 2 diabetes mellitus without complications (principal); E78.5 Hyperlipidemia, unspecified; E55.9 Vitamin D deficiency, unspecified
CPT/HCPCS: 36415; 80053; 80061; 82043; 82306; 82570

== ENCOUNTER 2023-11-24 07:37 | Outpatient (AMB) | payer MEDICAID, SELFPAY ==
[2023-11-24 08:14] VITALS: BP 158/92; PULSE 48; O2SAT 98; BMI 26.5
--- NOTE | 2023-11-24 08:14 | A.OFFPC_ITS ---
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 Accompanied by: Self / Same As Patient Allergies amlodipine Adverse Reaction (Intermediate, Verified 11/24/23 08:37) swelling of feet Medication List - Last Reconciled 11/24/23 by Mag Vila MD acetaminophen 1,000 mg (2 x 500 mg) PO Q6H PRN 30 days blood pressure monitor As directed blood sugar diagnostic (FreeStyle Lite Strips) As directed blood-glucose meter (FreeStyle Lite Meter kit) As directed cholecalciferol (vitamin D3) 25 mcg PO DAILY 90 days ezetimibe 10 mg PO DAILY 90 days lancets (FreeStyle Lancets) As directed losartan 50 mg PO DAILY 90 days metformin 500 mg PO DAILY 90 days rosuvastatin 40 mg PO BEDTIME 90 days Tobacco use date assessed: 03/05/23 Fall risk assessment: No Falls in past year Last assessed Fall Risk: 11/24/23 Dental Screening Dental Screen Date: 11/24/23 Did you have a dental visit in the last 12 months?: Yes Did you have a dental problem in the last 6 months where you did not have access to dental care?: No Was dental information given to patient?: Patient has dentist HPI HPI Comments History of Present Illness Details This is a 68-year-old male with diabetes mellitus type 2, hypertension, pure hypercholesterolemia and low vitamin-D that comes today complaining of bilateral ear itchiness that has been present for few weeks. Will start him on Dermotic drops. A1c within goal. Blood pressure elevated and will be recheck in 3 weeks by nurse navigator. LDL very close to goal. On vitamin-D supplements for his low vitamin-D which is at a normal level. Denies any chest pain or shortness on breath. [facility] Medical History (Updated 11/24/23 @ 12:03 by Mag Vila MD) Lumbar pain Pure hypercholesterolemia Neck pain Hypovitaminosis D Surgical History No pertinent past surgical history Family History Father No problems noted. Mother Cancer of kidney Social History Housing: Apartment Alcohol intake: current Alcohol intake frequency: holidays/special occasions only Alcohol type: beer Patient Tobacco Use Status: Former Tobacco user Tobacco use type: Cigarette e-Cigarette/Vaping Use: Never Used Second Hand Smoke Exposure: No service: No Current occupational status: employed Current occupational exposures/hazards: No Cognitive needs: No Hearing needs: No Vision needs: Yes Questionnaire PHQ-9 Over the last 2 weeks, how often have you been bothered by any of the following problems? 1. Little interest or pleasure in doing things: not at all 2. Feeling down, depressed, or hopeless: not at all 3. Trouble falling or staying asleep, or sleeping too much: not at all 4. Feeling tired or having little energy: not at all 5. Poor appetite or overeating: not at all 6. Feeling bad about yourself - or that you are a failure or have let yourself or your family down: not at all 7. Trouble concentrating on things, such as reading the newspaper or watching television: not at all 8. Moving or speaking so slowly that other people could have noticed. Or the opposite - being so fidgety or restless that you have been moving around a lot more than usual: not at all 9. Thoughts that you would be better off or of hurting yourself in some way: not at all Total score: 0 Depression Screening Interpretation: Negative Depression Screening Done: Yes 89490 - PHQ-9 Billing: Yes Source: Developed by Drs. Dick Mary, Maile House, Aurelio Jacobs and colleagues, with an educational mariana from [employer]. Thrive Questionnaire Date Thrive assessed: 03/05/23 Are you currently unemployed and looking for a job?: No AUDIT C Alcohol Use Questionnaire (AUDIT-C) 1. How often do you have a drink containing alcohol?: Monthly or less 2. How many drinks containing alcohol do you have on a typical day when you are drinking?: 1 or 2 3. How often do you have six or more drinks on one occasion?: Never Total Score: 1 Score Reviewed/Action Taken: No JEFFREY-7 AMB Questionnaire JEFFREY-7 Date JEFFREY - 7 assessed: 03/05/23 Source: Developed by Drs. Dick Mary, Maile House, Aurelio Jacobs and colleagues, with an educational mariana from [employer]. Review of Systems Const All systems reviewed & are unremarkable except as noted in HPI and below Card Denies chest pain at rest, Denies chest pain with activity, Denies edema, Denies irregular heart rhythm, Denies claudication, Denies dyspnea, Denies dyspnea on exertion, Denies orthopnea, Denies paroxysmal nocturnal dyspnea and Denies slow heart rate Resp Denies cough, Denies dyspnea and Denies dyspnea on exertion GI Denies abdominal pain, Denies change in bowel habits, Denies excessive flatus, Denies nausea and Denies vomiting Denies urinary hesitancy, Denies urinary incontinence and Denies urinary urgency Musc Denies atrophy, Denies deformity and Denies limited range of motion Physical exam (Primary Care) Vital Signs: Last Vital Signs Pulse 48 L 11/24/23 08:14 BP 158/92 H 11/24/23 08:14 Pulse Ox 98 11/24/23 08:14 Oxygen Delivery Method Room Air 11/24/23 08:14 BMI result Body Mass Index 26.5 Tobacco/Smoking Status: Tobacco use Status Tobacco use date assessed 03/05/23 11/24/23 08:15 Patient Tobacco Use Status Former Tobacco user 11/24/23 08:15 Tobacco use type Cigarette 11/24/23 08:15 e-Cigarette/Vaping Use Never Used 11/24/23 08:15 PHQ-9: PHQ-9 Score PHQ-9: Total score 0 11/24/23 10:47 Depression Screening Interpretation: Negative Thrive Assessment: Date of Thrive Assessment Date Thrive assessed 03/05/23 11/24/23 08:15 Resp Effort & Inspection: normal respiratory effort Auscultation: clear to auscultation bilaterally Cardio Jugular venous distension: no JVD Rate: regular rate Rhythm: regular rhythm Heart sounds: S1 normal heart sound present and S2 normal heart sound present Extrem General: Yes full ROM Results AMB Hemoglobin A1c AMB Hemoglobin A1c 5.9 % Last Edit by OMI Arellano on 11/24/23 08:27 Immunizations pneumoc 20-alejandro conj-dip cr(PF) 0.5 mL IM syringe Performing Provider: Mag Vila MD Performing Location: [facility] Administered by: OMI Nugent on 11/24/23 08:51 Dose Route Admin Location Dispensed Lot Number Expiration Date NDC [place] 0.5 mL IM Left Deltoid 0.5 mL [id number] 01/09/25 [id number] WYETH/PFIZER VIS Given Date VIS Provided VIS Publication Date 11/24/23 Single Vaccine 21 Eligibility Eligibility Date Funding Source Not [facility] Eligible 11/24/23 Private Results Reviewed Results Reviewed: Laboratory Last Values Hgb A1c (Clinic) 5.9 % (4.0-6.0) 11/24/23 08:15 Coding Level of Care Code Est Pt Level 4 (44137) Complex EM visit Add On G2211 Diagnoses Type 2 diabetes mellitus without complication, without long-term current use of insulin E11.9 Diabetes mellitus type: type 2 Diabetes mellitus half-way insulin use: without petroleum terminal plant operator use Diabetes mellitus complication status: without complication Pure hypercholesterolemia E78.00 Hypertension, essential I10 Hypovitaminosis D E55.9 Ear itch L29.9 Time Spent (min) 21 Assessment & Plan Assessment & Plan (1) Diabetes mellitus: Code(s): E11.9 - Type 2 diabetes mellitus without complications Category: Medical Qualifiers: Diabetes mellitus type: type 2 Diabetes mellitus half-way insulin use: without half-way use Diabetes mellitus complication status: without complication Qualified Code(s): E11.9 - Type 2 diabetes mellitus without complications Plan: Continue metformin. A1c goal is equal or less than 7%. (2) Pure hypercholesterolemia: Code(s): E78.00 - Pure hypercholesterolemia, unspecified Category: Medical Plan: Continue statins. LDL goal is less than 70. Advised to do low-cholesterol diet. Continue Zetia. (3) Hypertension, essential: Code(s): I10 - Essential (primary) hypertension Category: Medical Plan: Continue losartan. Blood pressure goal is equal or less than 130/80. Recheck blood pressure with nurse navigator in 3 weeks. (4) Hypovitaminosis D: Code(s): E55.9 - Vitamin D deficiency, unspecified Category: Medical Plan: Continue vitamin-D supplements. (5) Ear itch: Code(s): L29.9 - Pruritus, unspecified Category: Medical Plan: Start Dermotic. Orders: Orders Pneumococcal 20 Immunization Today Z23 - Encounter for immunization Microalbumin, Random (w Creat) 4 Months R80.9 - Proteinuria, unspecified Vitamin D 25-OH Total 4 Months E55.9 - Vitamin D deficiency, unspecified Comprehensive [place]. Panel Fast 4 Months E11.9 - Type 2 diabetes mellitus without complications AMB Hemoglobin A1c Today Z13.9 - Encounter for screening, unspecified US abdominal aortic aneurysm Today Z87.891 - Personal history of nicotine dependence Lipid Panel 4 Months E78.5 - Hyperlipidemia, unspecified Medications: New fluocinolone acetonide oil 0.01% (DermOtic Oil) 5 drps otic (ear) left BID 20 mL 0RF 7 days
== END 2023-11-24 08:55 | disposition home or self-care (01) ==
PROVIDERS: PCP Internal Medicine; Visit Provider Internal Medicine
DX: E11.9 Type 2 diabetes mellitus without complications (principal); E78.00 Pure hypercholesterolemia, unspecified; I10 Essential (primary) hypertension; E55.9 Vitamin D deficiency, unspecified; L29.9 Pruritus, unspecified; Z23 Encounter for immunization; Z13.9 Encounter for screening, unspecified

== ENCOUNTER → 2023-11-24 07:37 | Outpatient (BNVA) | payer MEDICAID, SELFPAY | PROVIDERS: PCP Internal Medicine; Visit Provider Internal Medicine | DX: Z23 Encounter for immunization (principal); E11.9 Type 2 diabetes mellitus without complications; E78.00 Pure hypercholesterolemia, unspecified; I10 Essential (primary) hypertension; E55.9 Vitamin D deficiency, unspecified; L29.9 Pruritus, unspecified | CPT/HCPCS: 83036; 90471; 90677; 96127; 99212 ==

== ENCOUNTER 2023-12-21 07:39 | Outpatient (REF) | payer MEDICAID, SELFPAY ==
--- NOTE | ~2023-12-21 | US_ITS ---
EXAMINATION: ABDOMINAL AORTIC ULTRASOUND CLINICAL INFORMATION: Family history of abdominal aortic aneurysm. COMPARISON: None available. TECHNIQUE: Simental-scale, color Doppler and spectral Doppler evaluation of the abdominal aorta was performed. FINDINGS: 1. Minimal atherosclerotic change present in the aorta without aneurysm. 2. The measurements of the aorta in maximum AP and transverse dimensions respectively are as follows: Proximal: 2.6 x 2.5 cm, Mid: 2.0 x 1.9 cm, Distal: 1.9 x 1.9 cm. 3.The measurements of the common iliac arteries in maximum AP dimension are as follows: Right common iliac artery: 1.2 x 1.5 cm, left common iliac artery: 1.2 x 1.2 cm. US/US abdominal aortic aneurysm IMPRESSION: No evidence of abdominal aortic aneurysm. Electronically signed by: Thierry Lagos MD 12/23/2023 12:02 AM [facility]
== END 2023-12-21 07:40 | disposition home or self-care (01) ==
LOC: HO.US 07:39
PROVIDERS: PCP Internal Medicine; Visit Provider Internal Medicine
DX: Z87.891 Personal history of nicotine dependence (principal)
CPT/HCPCS: 76706

== ENCOUNTER 2024-03-29 08:20 | Outpatient (REF) | payer MEDICAID, SELFPAY ==
--- OUTSIDE RECORDS SUMMARY | 2024-03-29 08:34 | XMS_ITS ---
Author Organization [facility] Address [address] [place] [address] Care Team Providers Care Erp Specialist Name Role Phone Mag Lara Primary Care Provider Unavailab Dick Manriquez Unavailable [phone] REASON FOR VISIT screening Encounters Encounter Location Date Provider Diagnosis [facility] Outpatient [address] [place] [phone] 03/21/2024 Dick Stone PLAN OF TREATMENT Next Appt Details Provider Name:Dick Stone , 07/08/2024 07:30:00 AM, [address] [place] [address], [phone],
--- OUTSIDE RECORDS SUMMARY | 2024-03-29 08:34 | XMS_ITS | Patient Health Record ---
Author Organization [facility] Address [address] [place] [address] Care Team Providers Care Manuscript Editor Name Role Phone Mag Lara Primary Care Provider Dick Porter Unavailable [phone] ALLERGIES No Known Allergies REASON FOR REFERRAL No Information MEDICATIONS Medication SIG (Take, Route, Frequency, Duration) Notes Start Date End Date Status Rosuvastatin Calcium 40 MG TAKE 1 TABLET BY MOUTH AT BEDTIME Oral for 90 Active metFORMIN HCl 500 MG TAKE 1 TABLET BY MO UTH EVERY DAY Oral for 90 Active D3-1000 25 MCG (1000 UT) TAKE 1 CAPSULE BY MOUTH EVERY DAY FOR 90 DAYS Oral for 90 Active Losartan Potassium 50 MG TAKE 1 TABLET B Y MOUTH EVERY DAY FOR 90 DAYS Oral for 90 Active Ezetimibe 10 MG TAKE 1 TABLET BY LUIS TH EVERY DAY Oral for 90 Active Acetaminophen Extra Strength 500 MG TAKE 2 TABLETS BY MOUTH EVERY 6 HOURS NEEDED FEVER Oral for 30 Active Dulcolax (colon prep) 5 MG take at 3:00 p.m and 7:00p.m. Orally two tablets twice a day for one day for 1 day 11/20/2023 Active MiraLax (colon prep) 17 GM/SCOOP 1 238Gm bottle mixed with Gatorade or Crystal Light Orally begin at 5:00 p.m. the day before the procedure for 1 day 11/20/2023 Active SOCIAL HISTORY Tobacco Use: Social History Observation Description Date Details (start date - stop date) Former Smoker NA - NA Sex Assigned At : Social History Observation Description Sex Assigned At Unknown Tobacco Use/Smoking Question Answer Notes Patient is a former smoker How long has it been since you last smoked? > 10 years PROBLEMS Problem Type ICD Code Onset Dates Problem Status W/U Status Risk SNOMED Code Notes Problem Colon cancer screening (Z12.11) Active confirmed Colon cancer screening (709614830) Problem Encounter for other preprocedural examination (Z01.818) Active confirmed Pre-procedure evaluation check (243806935) VITAL SIGNS Blood pressure diastolic 00 mm Hg 11/19/2023 Height 70 in 11/19/2023 Blood pressure systolic 00 mm Hg 11/19/2023 Weight 182 lbs 11/19/2023 BMI 26.11 kg/m2 11/19/2023 Encounters Encounter Location Date Provider Diagnosis [facility] [place] [address] [place] [phone] 03/21/2024 Dick Stone [facility] [address] [place] [phone] 11/19/2023 Dick Stone Colon cancer screeni ng Z12.11 and Encounter for other preprocedural examination Z01.818 [facility] [address] [place] [phone] 11/19/2023 Dick Stone [facility] [address] [place] [phone] 03/16/2024 Dick Stone ASSESSMENTS Encounter Date Diagnosis Assessment Notes Treatment Notes Treatment Clinical Notes 11/19/2023 Colon cancer screening (ICD-10 - Z12.11) Do not take any Metformin the night before nor on the morning of the colonoscopy 11/19/2023 Encounter for other preprocedural examination (ICD-10 - Z01.818) PLAN OF TREATMENT Future Test Test Name Order Date COLONOSCOPY 12/29/2012 COLONOSCOPY 11/19/2023 Next Appt Details Provider Name:Dick Stone , 07/08/2024 07:30:00 AM, [address] [place] [address] , [place], [place], [phone], Insurance Providers Payer Name Payer Address Payer Phone Subscriber Number Group Number Insured Name Patient Relationship to Insured Coverage Start Date Coverage End Date MEDICAID OF [place] [address] [place] [phone] [id number] MIKHAIL CALDWELL Self - patient is the insured MEDICAL (GENERAL) HISTORY Medical History History ICD Code Denies PR,CVA,Lung disease,renal disease High cholesterol NIDDM Negtaive screening colonoscopy in 2013 Surgical History Surgery Date(Month/Year)
--- OUTSIDE RECORDS SUMMARY | 2024-03-29 08:34 | XMS_ITS ---
Author Organization [facility] Address [address] [place] [address] Care Team Providers Care Customer Experience Leader Name Role Phone Mag Lara Primary Care Provider Unavailab Dick Manriquez Unavailable [phone] REASON FOR VISIT FYI Encounters Encounter Location Date Provider Diagnosis [facility] [address] [place] [address] 03/16/2024 Dick Stone PLAN OF TREATMENT Next Appt Details Provider Name:Dick Stone , 07/08/2024 07:30:00 AM, [address] [place] [address] , [place], [place], [phone],
--- OUTSIDE RECORDS SUMMARY | 2024-03-29 08:34 | XMS_ITS ---
Author Organization [facility] Address [address] [place] [phone] Care Team Providers Care Heel Room Supervisor Name Role Phone Mag Lara Primary Care Provider Unavailab Dick Manriquez Unavailable [phone] REASON FOR VISIT bowel prep MEDICATIONS Medication SIG (Take, Route, Frequency, Duration) Notes Start Date End Date Status Dulcolax (colon prep) 5 MG take at 3:00 p.m and 7:00p.m. Orally two tablets twice a day for one day for 1 day 11/20/2023 Active MiraLax (colon prep) 17 GM/SCOOP 1 238Gm bottle mixed with Gatorade or Crystal Light Orally begin at 5:00 p.m. the day before the procedure for 1 day 11/20/2023 Active Encounters Encounter Location Date Provider Diagnosis [facility] [address] [phone] 11/19/2023 Dick Stone PLAN OF TREATMENT Medication Medication Name Sig Start Date Stop Date Notes Dulcolax (colon prep) 5 MG take at 3:00 p.m and 7:00p.m. Orally two tablets twice a day for one day for 1 day 11/20/2023 MiraLax (colon prep) 17 GM/SCOOP 1 238Gm bottle mixed with Gatorade or Crystal Light Orally begin at 5:00 p.m. the day before the procedure for 1 day 11/20/2023 Next Appt Details Provider Name:Dick Stone , 07/08/2024 07:30:00 AM, [address] [place] [address] , [place], [place], [phone],
--- OUTSIDE RECORDS SUMMARY | 2024-03-29 08:34 | XMS_ITS | Clinical Summary ---
Author Organization [facility] Facility Address [address] [place] [address] Care Team Providers Care Sap Crm Developer Name Role Phone Unavailable Primary Care Provider Unavailabl e Allergies No known active allergies Medications rosuvastatin (CRESTOR) 20 MG tablet Take 20 mg by mouth 01/18/2022 Active metFORMIN (GLUCOPHAGE) 500 MG tablet Take 500 mg by mouth 1 (one) time each day 09/22/2022 Active losartan (COZAAR) 25 MG tablet Take 25 mg by mouth in the morning. 01/11/2022 Active ibuprofen (ADVIL,MOTRIN) 800 MG tablet TAKE 1 TABLET BY MOUTH EVERY 8 HOURS NEEDED FOR PAIN FOR 30 DAYS 10/09/2022 Active cholecalciferol (D3-1000) 25 MCG (1000 UT) capsule Take 25 mcg by mouth in the morning. 01/20/2022 Active Resolved Problems Problem Noted Date Diagnosed Date Resolved Date Dental caries 09/24/2022 11/10/2022 11/10/2022 Periodontal disease 05/01/2022 11/10/2022 11/11/19 Dental calculus 05/01/2022 11/10/2022 11/10/2022 Family History Relation Status Comments Father Mother Social History Tobacco Use Types Packs/Day Years Used Date Smoking Tobacco: Never Smokeless Tobacco: Never Tobacco Cessation:Counseling Given: Not Answered Alcohol Use Standard Drinks/Week Comments Yes 0 (1 standard drink = 0.6 oz pur e alcohol) Sex and Gender Information Value Date Recorded Sex Assigned at Not on file Legal Sex Male 10:08 AM EDT Gender Identity Not on file Sexual Orientation Not on file Last Filed Vital Signs Vital Sign Reading Time Taken Comments Blood Pressure 146/61 11/10/2022 2:37 PM EDT Pulse 74 11/10/2022 2:37 PM EDT Temperature - - Respiratory Rate - - Oxygen Saturation 99% 11/10/2022 2:37 PM EDT Inhaled Oxygen Concentration - - Weight 79.4 kg (175 lb) 11/10/2022 2:37 PM EDT Height - - Body Mass Index - - Plan of Treatment Health Maintenance Due Date Last Done Comments Colorectal Cancer Screening: Annual FOBT 09/14/2003 Colorectal Cancer Screening: Colonoscopy 09/14/2003 Colorectal Cancer Screening: Sigmoidoscopy 09/14/2003 Pneumococcal Vaccine: 65+ Ye ars (1 of 1 - PCV) 09/14/2019 Influenza Vaccine (#1) 2023 Hepatitis B Vaccine Aged Out No longe r eligible based on patient's age to complete this topic Insurance * Guarantor: Keshav Polanco Account Type Relation to Patient Date of Phone Billing Address Personal/Family Self [address] [place] [address] [place]
[2024-03-29 09:25] LABS: Alanine Aminotransferase 46 U/L (0-40); Albumin Level 4.6 g/dL (3.5-5.0); Alkaline Phosphatase 69 U/L (39-117); Anion Gap 12 (12-20); Aspartate Amino Transferase 32 U/L (5-37); Bilirubin Total 0.6 mg/dL (0.0-1.0); Blood Urea Nitrogen 11 mg/dL (9-16); Calcium 10.1 mg/dL (8.4-10.2); Carbon Dioxide 27 mmol/L (22-29); Chloride 107 mmol/L (96-108); Cholesterol 144 mg/dL (<200); Estimated Glomerular Filt Rate > 60; Glucose Fasting 116 mg/dL (60-99); HDL Cholesterol 42 mg/dL (>40); LDL Cholesterol Calculated 84 mg/dL (<100); Potassium 4.4 mmol/L (3.3-5.1); Sodium 142 mmol/L (135-145); Total Protein 7.9 g/dL (6.5-8.0); Triglycerides 90 mg/dL (<150)
[2024-03-29 09:26] LABS: Creatinine Urine 105.34 mg/dL; Microalbum/Creatinine Ratio Ur 84.4 ug/mg cr (<30)
[2024-03-29 09:44] LABS: Vitamin D 25-OH Total 39.9 ng/mL (>30)
== END 2024-03-29 08:21 | disposition home or self-care (01) ==
LOC: HO.LAB 08:20
PROVIDERS: PCP Internal Medicine; Visit Provider Internal Medicine
DX: E11.9 Type 2 diabetes mellitus without complications (principal); E78.5 Hyperlipidemia, unspecified; E55.9 Vitamin D deficiency, unspecified; R80.9 Proteinuria, unspecified
CPT/HCPCS: 36415; 80053; 80061; 82043; 82306; 82570

== ENCOUNTER 2024-03-30 13:54 | Outpatient (AMB) | payer MEDICAID, SELFPAY ==
--- NOTE | 2024-03-30 13:59 | A.OFFPC_ITS ---
Vital Signs 03/30/24 14:07 Height 5 ft 10 in Weight 180 lb BMI 25.8 BP 130/82 Blood Pressure Location Lt brachial Position Sitting Intake Visit Reasons: dm Intake Note: Patient here for a follow up DM Certified Registered Nurse Anesthetist Required: No Accompanied by: Self / Same As Patient Allergies amlodipine Adverse Reaction (Intermediate, Verified 03/30/24 14:16) swelling of feet Medication List - Last Reconciled 03/30/24 by Mag Vila MD acetaminophen 1,000 mg (2 x 500 mg) PO Q6H PRN 30 days blood pressure monitor As directed blood sugar diagnostic (FreeStyle Lite Strips) As directed blood-glucose meter (FreeStyle Lite Meter kit) As directed cholecalciferol (vitamin D3) 25 mcg PO DAILY 90 days ezetimibe 10 mg PO DAILY 90 days fluocinolone acetonide oil 0.01% (DermOtic Oil) 5 drps otic (ear) left BID 7 days lancets (FreeStyle Lancets) As directed losartan 50 mg PO DAILY 90 days metformin 500 mg PO DAILY 90 days rosuvastatin 40 mg PO BEDTIME 90 days Tobacco use date assessed: 03/30/24 Fall risk assessment: No Falls in past year Last assessed Fall Risk: 03/30/24 Dental Screening Dental Screen Date: 03/30/24 Did you have a dental visit in the last 12 months?: Yes Did you have a dental problem in the last 6 months where you did not have access to dental care?: No Was dental information given to patient?: Patient has dentist HPI HPI Comments History of Present Illness Details The patient is a 68-year-old male presenting with a follow-up for management of Type 2 Diabetes Mellitus, Essential Hypertension, and Hyperlipidemia. He has been managing his diabetes with metformin, with recent lab work showing an A1c of 5.9%, consistent with his previous visit. The patient has been taking losartan 50 mg for hypertension, and his blood pressure is currently well-controlled. For hyperlipidemia, he is on rosuvastatin 40 mg, but recent lipid profiling indicates an LDL level of 84 mg/dL, which is above the target of <70 mg/dL due to his diabetic status. Previously, his LDL was 74 mg/dL. He was informed about the importance of diet in controlling cholesterol levels and stated he has been adhering to a diet low in sugary foods, sodas, and fried items. He used to smoke but has since quit. The patient also acknowledged a deviation from his diet around January and February but is returning to healthier habits. He has been screened for an abdominal aortic aneurysm, with normal results noted in the past. [facility] Medical History Lumbar pain Pure hypercholesterolemia Neck pain Hypovitaminosis D Surgical History No pertinent past surgical history Family History Father No problems noted. Mother Cancer of kidney Social History Housing: Apartment Alcohol intake: current Alcohol intake frequency: holidays/special occasions only Alcohol type: beer Patient Tobacco Use Status: Former Tobacco user Tobacco use type: Cigarette e-Cigarette/Vaping Use: Never Used Second Hand Smoke Exposure: No service: No Current occupational status: employed Current occupational exposures/hazards: No Cognitive needs: No Hearing needs: No Vision needs: Yes Questionnaire PHQ-9 Over the last 2 weeks, how often have you been bothered by any of the following problems? 1. Little interest or pleasure in doing things: not at all 2. Feeling down, depressed, or hopeless: not at all 3. Trouble falling or staying asleep, or sleeping too much: not at all 4. Feeling tired or having little energy: not at all 5. Poor appetite or overeating: not at all 6. Feeling bad about yourself - or that you are a failure or have let yourself or your family down: not at all 7. Trouble concentrating on things, such as reading the newspaper or watching television: not at all 8. Moving or speaking so slowly that other people could have noticed. Or the opposite - being so fidgety or restless that you have been moving around a lot more than usual: not at all 9. Thoughts that you would be better off or of hurting yourself in some way: not at all Total score: 0 Depression Screening Interpretation: Negative Depression Screening Done: Yes Source: Developed by Drs. Dick Mary, Maile B.Aurelio Hall and colleagues, with an educational mariana from [employer]. Thrive Questionnaire Date Thrive assessed: 03/30/24 I am a: Patient What is your living situation today?: I have a steady place to live Within the past 12 months, did the food you bought not last and you didn't have the money to get more?: Never true Within the past 12 months, did you worry whether your food would run out before you got money to buy more?: Never true Do you have trouble paying for medicines?: No Do you have trouble getting transportation to medical appointments?: No Do you have trouble paying your heating and electricity bill?: No Do you have trouble taking care of your child, family member or friend?: No Do you have trouble with day-to-day activities such as bathing, preparing meals, shopping, managing finances, etc.?: No Are you currently unemployed and looking for a job?: No Are you interested in more education?: No Please select the resources that you would like help with: None Currently or been in a relationship where the following occur: No concerns reported THRIVE Score: 0 AUDIT C Alcohol Use Questionnaire (AUDIT-C) 1. How often do you have a drink containing alcohol?: Monthly or less 2. How many drinks containing alcohol do you have on a typical day when you are drinking?: 1 or 2 3. How often do you have six or more drinks on one occasion?: Never Total Score: 1 JEFFREY-7 AMB Questionnaire JEFFREY-7 Date JEFFREY - 7 assessed: 03/30/24 Feeling nervous, anxious, or on edge: 0 = Not at all Not being able to stop or control worryin = Not at all Worrying too much about different things: 0 = Not at all Trouble relaxin = Not at all Being so restless that it is hard to sit still: 0 = Not at all Becoming easily annoyed or irritable: 0 = Not at all Feeling afraid as if something awful might happen: 0 = Not at all Total JEFFREY-7 score (0-4 normal; 5-9 mild; 10-14 moderate; 15-21 severe): 0 Source: Developed by Drs. Dick Mary, Aurelio Watson and colleagues, with an educational mariana from [employer] Review of Systems Const All systems reviewed & are unremarkable except as noted in HPI and below Card Denies chest pain at rest, Denies chest pain with activity, Denies edema, Denies irregular heart rhythm, Denies claudication, Denies dyspnea, Denies dyspnea on exertion, Denies orthopnea, Denies paroxysmal nocturnal dyspnea and Denies slow heart rate Resp Denies cough, Denies dyspnea and Denies dyspnea on exertion GI Denies abdominal pain, Denies change in bowel habits, Denies excessive flatus, Denies nausea and Denies vomiting Physical exam (Primary Care) Vital Signs: Last Vital Signs BP 130/82 03/30/24 14:07 BMI result Body Mass Index 25.8 Tobacco/Smoking Status: Tobacco use Status Tobacco use date assessed 03/30/24 03/30/24 14:11 Patient Tobacco Use Status Former Tobacco user 03/30/24 14:03 Tobacco use type Cigarette 03/30/24 14:03 e-Cigarette/Vaping Use Never Used 03/30/24 14:03 PHQ-9: PHQ-9 Score PHQ-9: Total score 0 03/30/24 14:17 Depression Screening Interpretation: Negative Thrive Assessment: Date of Thrive Assessment Date Thrive assessed 03/30/24 03/30/24 14:03 Currently or been in a relationship where the following occur: No concerns reported Resp Effort & Inspection: normal respiratory effort Auscultation: clear to auscultation bilaterally Cardio Jugular venous distension: no JVD Rate: regular rate Rhythm: regular rhythm Heart sounds: S1 normal heart sound present and S2 normal heart sound present Extrem General: Yes full ROM Office Procedures Flu Questionnaire Does the patient have a severe egg allergy?: No Results AMB Hemoglobin A1c AMB Hemoglobin A1c 5.9 % Last Edit by OMI Sullivan on 03/30/24 14:1 3 Immunizations Fluarix Triv [id number] (PF) 45 mcg (15 mcg x 3)/0.5 mL IM syringe Performing Provider: Mag Vila MD [facility] Documented (not given) by: OMI Sullivan on 03/30/24 14:12 Reason Not Given: Patient Refused Results Reviewed Results Reviewed: Laboratory Last Values Hgb A1c (Clinic) 5.9 % (4.0-6.0) 03/30/24 13:58 Coding Level of Care Code Est Pt Level 4 (25816) Complex EM visit Add On G2211 Diagnoses Type 2 diabetes mellitus without complication, without long-term current use of insulin E11.9 Diabetes mellitus type: type 2 Diabetes mellitus nursing home insulin use: without nursing home use Diabetes mellitus complication status: without complication Hypertension, essential I10 Pure hypercholesterolemia E78.00 Hypovitaminosis D E55.9 Time Spent (min) 21 Assessment & Plan Assessment & Plan (1) Diabetes mellitus: Code(s): E11.9 - Type 2 diabetes mellitus without complications Category: Medical Qualifiers: Diabetes mellitus type: type 2 Diabetes mellitus remote computer terminal operator insulin use: without nursing home use Diabetes mellitus complication status: without complication Qualified Code(s): E11.9 - Type 2 diabetes mellitus without complications (2) Hypertension, essential: Code(s): I10 - Essential (primary) hypertension Category: Medical (3) Pure hypercholesterolemia: Code(s): E78.00 - Pure hypercholesterolemia, unspecified Category: Medical (4) Hypovitaminosis D: Code(s): E55.9 - Vitamin D deficiency, unspecified Category: Medical Plan - Consider increasing rosuvastatin dose from 40 mg to 80 mg due to elevated LDL cholesterol levels in a diabetic patient, aiming for LDL <70 mg/dL. - Continue current medication regimen for Type 2 Diabetes Mellitus and Essential Hypertension; metformin and losartan appear effective. - Maintain lifestyle modifications focusing on diet to assist in managing hyperlipidemia. - Tetanus vaccination to be revisited after August 2024 due to current vaccination schedule requiring a 10-year interval. Patient was informed and verbally consented to the use of an ambient scribe for clinic note documentation during this visit. I discussed with the patient the importance of maintaining LDL cholesterol below 70 mg/dL due to his condition of diabetes and the benefits of potentially increasing rosuvastatin to 80 mg. We reviewed the clinical guidelines supporting this recommendation. The patient expressed understanding and agreed to focus on dietary modifications as a primary strategy for cholesterol management. We will assess the cholesterol levels in 6 months and consider medication adjustment accordingly. The patient was reminded that he is up to date on tetanus vaccination and will need the next dose after August 2024. Orders: Orders Influenza [id number] Immunization Today Z23 - Encounter for immunization AMB Hemoglobin A1c Today E11.9 - Type 2 diabetes mellitus without complications Patient Instructions: - Continue taking current medications as prescribed for diabetes and hypertension. - Follow a low-fat, low-sugar diet and avoid fried foods to control cholesterol levels. - Schedule a follow-up appointment for June for physical examination and to review lipid levels. - Wait until after August 2024 for the next tetanus vaccination. - Contact the clinic if experiencing any significant chest pain or other concerning symptoms.
[2024-03-30 14:07] VITALS: BP 130/82; BMI 25.8
--- OUTSIDE RECORDS SUMMARY | 2024-03-30 14:13 | XMS_ITS | Encounter Summary ---
Author Organization [employer] Address [address] [facility] [address] [place] [address] Care Team Providers Care Pot Fisher Name Role Phone Unavailable Primary Care Provider Unavailabl e Encounter Details Date Type Department Care Team (Late st Contact Info) Description 03/24/2022 Abstract [facility] ADULT DENTAL [address] [place] [address] Angel Engle DDS [address] [place] [address] Social History Tobacco Use Types Packs/Day Years Used Date Smoking Tobacco: Former Cigarettes Passive Smoke Exposure: Never Smokeless Tobacco: Never Sex and Gender Information Value Date Recorded Sex Assigned at Male 12/09/2021 10:22 AM EDT Legal Sex Male 10:22 AM EDT Gender Identity Male 12/09/2021 10:22 AM EDT Sexual Orientation Straight 12/09/2021 10 :22 AM EDT COVID-19 Exposure Response Date Recorded In the last 10 days, have yo u been in contact with someone who was confirmed or suspected to have Coronavirus/COVID-19? No / Unsure 03/14/2022 2:39 PM EST documented as of this encounter Plan of Treatment Not on file documented as of this encounter Visit Diagnoses Not on filedocumented in this encounter
--- OUTSIDE RECORDS SUMMARY | 2024-03-30 14:13 | XMS_ITS | Encounter Summary ---
Author Organization [employer] Address [address] [facility] 7t [place] [address] Care Team Providers Care Vp Celebrity Services Name Role Phone Unavailable Primary Care Provider Unavailabl e Encounter Details Date Type Department Care Team (Late st Contact Info) Description 04/07/2022 Abstract [facility] ADULT DENTAL [address] [place] [address] Angel Engle DDS [address] [place] [address] Social History Tobacco Use Types Packs/Day Years [...] suspected to have Coronavirus/COVID-19? No / Unsure 04/08/2022 2:43 PM EST documented as of this encounter Plan of Treatment Not on file documented as of this encounter Visit Diagnoses Not on filedocumented in this encounter
--- OUTSIDE RECORDS SUMMARY | 2024-03-30 14:14 | XMS_ITS ---
Author Organization [facility] Address [address] [place] [address] Care Team Providers Care Semiconductor Testing Group Leader Name Role Phone Mag Lara Primary Care Provider Unavailab Dick Manriquez Unavailable [phone] REASON FOR VISIT FYI Encounters Encounter Location Date Provider Diagnosis [facility] [address] [place] [address] 03/16/2024 Dick Stone PLAN OF TREATMENT Next Appt Details Provider Name:Dick Stone , 07/08/2024 07:30:00 AM, [address] [place] [address] , [place], [place], [phone],
--- OUTSIDE RECORDS SUMMARY | 2024-03-30 14:14 | XMS_ITS ---
Author Organization [facility] Address [address] [place] [address] Care Team Providers Care Teacher Lip Reading Name Role Phone Mag Lara Primary Care Provider Unavailab Dick Manriquez Unavailable [phone] REASON FOR VISIT screening Encounters Encounter Location Date Provider Diagnosis [facility] [address] [place] [phone] 03/21/2024 Dick Stone PLAN OF TREATMENT Next Appt Details Provider Name:Dick Stone , 07/08/2024 07:30:00 AM, [address] [place] [address], [phone],
--- OUTSIDE RECORDS SUMMARY | 2024-03-30 14:14 | XMS_ITS | Encounter Summary ---
Author Organization [employer] Address [address] [facility] [address] [place] [address] Care Team Providers Care Video Library Assistant Name Role Phone Unavailable Primary Care Provider Unavailabl e Encounter Details Date Type Department Care Team (Latest Contact Info) Description 09/14/2020 Abstract [facility] Dental, Provider, DDS Social History Tobacco Use Types Packs/Day Years Used Date Smoking Tobacco: Never Assessed Sex and Gender Information Value Date Recorded Sex Assigned at Male 12/09/2021 10:22 AM EDT Legal Sex Male 10:22 AM EDT Gender Identity Male 12/09/2021 10:22 AM EDT Sexual Orientation Straight 12/09/2021 10 :22 AM EDT documented as of this encounter Plan of Treatment Not on file documented as of this encounter Visit Diagnoses Not on filedocumented in this encounter
--- OUTSIDE RECORDS SUMMARY | 2024-03-30 14:14 | XMS_ITS ---
Author Organization [facility] Address [address] [place] [address] Care Team Providers Care Spice Fumigator Name Role Phone Mag Lara Primary Care Provider Unavailab Dick Manriquez Unavailable [phone] REASON FOR VISIT verify address Encounters Encounter Location Date Provider Diagnosis [facility] [address] [place] [address] 03/30/2024 Dick Stone PLAN OF TREATMENT Next Appt Details Provider Name:Dick Stone , 07/08/2024 07:30:00 AM, [address] [place] [address] , [place], [place], [phone],
--- OUTSIDE RECORDS SUMMARY | 2024-03-30 14:14 | XMS_ITS | Clinical Summary ---
Author Organization [employer] Address [address] [facility] [address] [place] [address] Care Team Providers Care Senior Ui Designer Name Role Phone Unavailable Primary Care Provider Unavailabl e Allergies No known active allergies Medications losartan (Cozaar) 25 MG tablet Take 25 mg by mouth in the morning. 01/11/2022 Active rosuvastatin (Crestor) 20 MG tablet Take 20 mg by mouth at bedtime. 01/18/2022 Active D3-1000 25 MCG (1000 UT) capsule Take 25 mcg by mouth in the morning. 01/20/2022 Active Active Problems Problem Noted Date Diagnosed Date Dental caries 09/24/2022 Periodontal disease 05/01/2022 Dental calculus 05/01/2022 Encounters Date Type Department Care Team Description 02/26/2024 Telephone [facility] ADULT DENTAL [address] [place] [address] Saima Sorensen from Last 3 Months Social History Tobacco Use Types Packs/Day Years Used Date Smoking Tobacco: Former Cigarettes Passive Smoke Exposure: Never Smokeless Tobacco: Never Tobacco Cessation:Counseling Given: Not Answered Alcohol Use Standard Drinks/Week Comments Defer 0 (1 standard drink = 0.6 oz pur e alcohol) Sex and Gender Information Value Date Recorded Sex Assigned at Male 12/09/2021 10:22 AM EDT Legal Sex Male 10:22 AM EDT Gender Identity Male 12/09/2021 10:22 AM EDT Sexual Orientation Straight 12/09/2021 10 :22 AM EDT Last Filed Vital Signs Vital Sign Reading Time Taken Comments Blood Pressure 126/74 11/10/2023 1:57 PM EDT Pulse 74 05/01/2022 2:30 PM EDT Temperature - - Respiratory Rate - - Oxygen Saturation - - Inhaled Oxygen Concentration - - Weight - - Height - - Body Mass Index - - Plan of Treatment Health Maintenance Due Date Last Done Comments CT Colonography 1954 Colonoscopy 1954 Colorectal Cancer Screening 1954 Dental X-Ray: Full Mouth 1954 Depression Screening 1954 FIT DNA/Cologuard 1954 FIT 1954 FOBT 1954 Lipid Panel 1954 SDOH Screening 1954 Sigmoidoscopy 1954 Alcohol/Substance Use Screening 1966 Hepatitis C Screening 1972 Zoster Vaccines (1 of 2) 2004 Pneumococcal Vaccine: 50+ Years (2 of 2 - PCV) 12/03/2017 12/03/2016 Dental Oral Exam 09/12/2022 03/14/2022 COVID-19 Vaccine (3 - 2023-2 5 season) 2023 05/17/2020, 04/26/2020 Influenza Vaccine (#1) 2023 11/10/2017 Dental Prophylaxis 05/11/2024 11/10/2023, 03/14/2022 DTaP/Tdap/Td Vaccines (2 - T d or Tdap) 08/16/2024 08/16/2014 Tobacco Screening 11/09/2024 11/10/2023 Dental X-Ray: Bitewings 11/10/2024 11/10/19 24, 03/14/2022 RSV Patients and Patients Aged 60 years or older (1 - 1-dose 75+ series) 2029 HIB Vaccines Aged Out No longer eligi ble based on patient's age to complete this topic HPV Vaccines Aged Out No longer eligi ble based on patient's age to complete this topic Hepatitis A Vaccines Aged Out No long er eligible based on patient's age to complete this topic Hepatitis B Vaccines Aged Out No long er eligible based on patient's age to complete this topic IPV Vaccines Aged Out No longer eligi ble based on patient's age to complete this topic Meningococcal Vaccine Aged Out No melyssa simi eligible based on patient's age to complete this topic RSV under 20 months Aged Out No longe r eligible based on patient's age to complete this topic Rotavirus Vaccines Aged Out No longer eligible based on patient's age to complete this topic Procedures Procedure Name Priority Date/Time Associated Diagnosis Comments Full PROPHYLAXIS - ADULT Routine 024 2:00 PM EDT Dental plaque Dental calculus BITEWINGS - 4 RADIOGRAPHIC IMAGES Routine 11/10/2023 2:00 PM EDT COMPREHENSIVE ORAL EVALUATION - NEW OR ESTABLISHED PATIENT Routine 03/14/2022 2:30 PM EST from Last 3 Months or Most Recently Relevant to Health Maintenance Insurance [facility] MEDICAID STAND ADULT
--- OUTSIDE RECORDS SUMMARY | 2024-03-30 14:14 | XMS_ITS | Clinical Summary ---
Author Organization [facility] Facility Address [address] [place] [address] Care Team Providers Care Velvet Steamer Name Role Phone Unavailable Primary Care Provider [...]
--- OUTSIDE RECORDS SUMMARY | 2024-03-30 14:14 | XMS_ITS | Patient Health Record ---
Author Organization [facility] Address [address] [place] [address] Care Team Providers Care Front Desk Supervisor Name Role Phone Mag Lara Primary Care Provider Dick Porter Unavailable [phone] ALLERGIES No Known Allergies REASON FOR REFERRAL [...] screening (Z12.11) Active confirmed Colon cancer screening ([id number]) Problem Encounter for other preprocedural examination (Z01.818) Active confirmed Pre-procedure evaluation check ([id number]) VITAL SIGNS Blood pressure diastolic 00 mm Hg 11/19/2023 Height 70 in 11/19/2023 Blood pressure systolic 00 mm Hg 11/19/2023 Weight 182 lbs 11/19/2023 BMI 26.11 kg/m2 11/19/2023 Encounters Encounter Location Date Provider Diagnosis [facility] [address] [place] [id number] 03/21/2024 Dick Stone [facility] [address] [place] [phone] 11/19/2023 Dick Stone Colon cancer screeni ng Z12.11 and Encounter for other preprocedural examination Z01.818 [facility] [address] [place] [phone] 11/19/2023 Dikc Stone [facility] [address] [place] [phone] 03/16/2024 Dick Stone [facility] [address] [place] [phone] 03/30/2024 Dick Stone ASSESSMENTS Encounter Date Diagnosis Assessment [...] Provider Name:Dick Stone , 07/08/2024 07:30:00 AM, [address] [place] [address] , [place], [place], [id number], Insurance Providers Payer Name Payer Address Payer Phone Subscriber Number Group Number Insured Name Patient Relationship to Insured Coverage Start Date Coverage End Date MEDICAID OF [employer] [address] [place] [phone] [id number] MIKHAIL CALDWELL Self - patient is the insured MEDICAL (GENERAL) HISTORY Medical History History ICD Code Denies [place],CVA,Lung disease,renal disease High cholesterol NIDDM Negtaive screening colonoscopy in 2013 Surgical History Surgery Date(Month/Year)
== END 2024-03-30 14:28 | disposition home or self-care (01) ==
PROVIDERS: PCP Internal Medicine; Visit Provider Internal Medicine
DX: E11.9 Type 2 diabetes mellitus without complications (principal); I10 Essential (primary) hypertension; E78.00 Pure hypercholesterolemia, unspecified; E55.9 Vitamin D deficiency, unspecified; Z23 Encounter for immunization

== ENCOUNTER → 2024-03-30 13:54 | Outpatient (BNVA) | payer MEDICAID, SELFPAY | PROVIDERS: PCP Internal Medicine; Visit Provider Internal Medicine | DX: E11.9 Type 2 diabetes mellitus without complications (principal); E78.00 Pure hypercholesterolemia, unspecified; E55.9 Vitamin D deficiency, unspecified; I10 Essential (primary) hypertension | CPT/HCPCS: 83036; 90471; 99212 ==

== ENCOUNTER 2024-07-06 07:38 | Outpatient (REF) | payer MEDICAID, SELFPAY ==
--- OUTSIDE RECORDS SUMMARY | 2024-07-06 07:46 | XMS_ITS | Encounter Summary ---
Author Organization [employer] Address [address] [facility] [address] [place] [address] Care Team Providers Care Inventory Manager Name Role Phone Unavailable Primary Care Provider Unavailabl e Encounter Details Date Type Department Care Team (Late st Contact Info) Description 04/07/2022 Abstract [facility] [address] [place] [address] Angel Engle DDS [address] [place] [address] Social History Tobacco Use Types Packs/Day Years [...]
[2024-07-06 09:09] LABS: Alanine Aminotransferase 44 U/L (0-40); Albumin Level 4.7 g/dL (3.5-5.0); Alkaline Phosphatase 56 U/L (39-117); Anion Gap 9 (12-20); Bilirubin Total 0.6 mg/dL (0.0-1.0); Blood Urea Nitrogen 11 mg/dL (9-16); Calcium 9.7 mg/dL (8.4-10.2); Carbon Dioxide 28 mmol/L (22-29); Chloride 106 mmol/L (96-108); Cholesterol 143 mg/dL (<200); Estimated Glomerular Filt Rate > 60; Glucose Random 121 mg/dL (60-115); HDL Cholesterol 47 mg/dL (>40); LDL Cholesterol Calculated 83 mg/dL (<100); Potassium 4.4 mmol/L (3.3-5.1); Sodium 139 mmol/L (135-145); Total Protein 7.5 g/dL (6.5-8.0); Triglycerides 67 mg/dL (<150)
[2024-07-06 09:22] LABS: Aspartate Amino Transferase 34 U/L (5-37)
[2024-07-06 09:24] LABS: Microalbum/Creatinine Ratio Ur 29.6 ug/mg cr (<30)
[2024-07-06 09:33] LABS: Vitamin D 25-OH Total 39.5 ng/mL (>30)
== END 2024-07-06 07:39 | disposition home or self-care (01) ==
LOC: HO.LAB 07:38
PROVIDERS: PCP Internal Medicine; Visit Provider Internal Medicine
DX: E11.9 Type 2 diabetes mellitus without complications (principal); E78.5 Hyperlipidemia, unspecified; R80.9 Proteinuria, unspecified; E55.9 Vitamin D deficiency, unspecified
CPT/HCPCS: 36415; 80053; 80061; 82043; 82306; 82570

== ENCOUNTER 2024-07-07 08:10 | Outpatient (AMB) | payer MEDICAID, SELFPAY ==
--- OUTSIDE RECORDS SUMMARY | 2024-07-07 08:12 | XMS_ITS | Encounter Summary ---
Author Organization [employer] Address [address] [facility] [address] [place] [address] Care Team Providers Care Electric Meter Tester Name Role Phone Unavailable Primary Care Provider Unavailabl e Encounter Details Date Type Department Care Team (Late st Contact Info) Description 04/07/2022 Abstract [facility] [address] [place] [address] Angel Engle DDS [address] [place] [address] Social History Tobacco Use Types Packs/Day Years [...]
--- NOTE | 2024-07-07 08:36 | MHC.PC.OV ---
Vital Signs 07/07/24 08:38 Height 5 ft 10 in Weight 187 lb BMI 26.8 BP 132/80 Blood Pressure Location Lt brachial Position Sitting Intake Visit Reasons: annual exam Intake Note: Patient here for a physical exam [employer] Officer Required: No Accompanied by: Self / Same As Patient Allergies amlodipine Adverse Reaction (Intermediate, Verified 07/07/24 08:56) swelling of feet Medication List - Last Reconciled 07/07/24 by Mag Vila MD acetaminophen 1,000 mg (2 x 500 mg) PO Q6H PRN 30 days blood pressure monitor As directed blood sugar diagnostic (FreeStyle Lite Strips) As directed blood-glucose meter (FreeStyle Lite Meter kit) As directed cholecalciferol (vitamin D3) 25 mcg PO DAILY 90 days ezetimibe 10 mg PO DAILY 90 days fluocinolone acetonide oil 0.01% (DermOtic Oil) 5 drps otic (ear) left BID 7 days ibuprofen 800 mg PO Q8H PRN 30 days lancets (FreeStyle Lancets) As directed losartan 50 mg PO DAILY 90 days metformin 500 mg PO DAILY 90 days rosuvastatin 40 mg PO BEDTIME 90 days Tobacco use date assessed: 03/30/24 Fall risk assessment: No Falls in past year Last assessed Fall Risk: 07/07/24 Dental Screening Dental Screen Date: 03/30/24 HPI HPI Comments History of Present Illness Details The patient is a 68-year-old male presenting for his physical exam. Vaccines are up-to-date. Colonoscopy will be done soon. He has essential hypertension, type 2 diabetes mellitus, and hyperlipidemia. His hypertension is well-managed, and diabetes control is reflected in a hemoglobin A1c of 5.8%. His LDL cholesterol remains stable at 83 mg/dL. The patient has a past history of smoking but now only drinks alcohol occasionally. An ultrasound ruled out an abdominal aortic aneurysm. Liver enzymes are mildly elevated, possibly due to cholesterol medication, but this is considered an acceptable trade-off given the medication's benefits. Proteinuria has significantly decreased, and his vitamin D levels are normal. [facility] Medical History Lumbar pain Pure hypercholesterolemia Neck pain Hypovitaminosis D Surgical History No pertinent past surgical history Family History Father No problems noted. Mother Cancer of kidney Social History Housing: Apartment Alcohol intake: current Alcohol intake frequency: holidays/special occasions only Alcohol type: beer Patient Tobacco Use Status: Former Tobacco user Tobacco use type: Cigarette e-Cigarette/Vaping Use: Never Used Second Hand Smoke Exposure: No service: No Current occupational status: employed Current occupational exposures/hazards: No Cognitive needs: No Hearing needs: No Vision needs: Yes Questionnaire PHQ-9 Over the last 2 weeks, how often have you been bothered by any of the following problems? 1. Little interest or pleasure in doing things: not at all 2. Feeling down, depressed, or hopeless: not at all 3. Trouble falling or staying asleep, or sleeping too much: not at all 4. Feeling tired or having little energy: not at all 5. Poor appetite or overeating: not at all 6. Feeling bad about yourself - or that you are a failure or have let yourself or your family down: not at all 7. Trouble concentrating on things, such as reading the newspaper or watching television: not at all 8. Moving or speaking so slowly that other people could have noticed. Or the opposite - being so fidgety or restless that you have been moving around a lot more than usual: not at all 9. Thoughts that you would be better off or of hurting yourself in some way: not at all Total score: 0 Depression Screening Interpretation: Negative Depression Screening Done: Yes 29029 - PHQ-9 Billing: Yes Source: Developed by Drs. Dick Mary, Maile House, Aurelio Jacobs and colleagues, with an educational mariana from [employer]. Thrive Questionnaire Date Thrive assessed: 07/07/24 I am a: Patient What is your living situation today?: I choose not to answer this question Within the past 12 months, did the food you bought not last and you didn't have the money to get more?: I choose not to answer this question Within the past 12 months, did you worry whether your food would run out before you got money to buy more?: I choose not to answer this question Do you have trouble paying for medicines?: I choose not to answer this question Do you have trouble getting transportation to medical appointments?: I choose not to answer this question Do you have trouble paying your heating and electricity bill?: I choose not to answer this question Do you have trouble taking care of your child, family member or friend?: I choose not to answer this question Do you have trouble with day-to-day activities such as bathing, preparing meals, shopping, managing finances, etc.?: No Are you currently unemployed and looking for a job?: I choose not to answer this question Are you interested in more education?: No Please select the resources that you would like help with: None Currently or been in a relationship where the following occur: I choose not to answer THRIVE Score: 0 AUDIT C Alcohol Use Questionnaire (AUDIT-C) 1. How often do you have a drink containing alcohol?: Never Total Score: 0 Score Reviewed/Action Taken: No JEFFREY-7 AMB Questionnaire JEFFREY-7 Date JEFFREY - 7 assessed: 07/07/24 Feeling nervous, anxious, or on edge: 0 = Not at all Not being able to stop or control worryin = Not at all Worrying too much about different things: 0 = Not at all Trouble relaxin = Not at all Being so restless that it is hard to sit still: 0 = Not at all Becoming easily annoyed or irritable: 0 = Not at all Feeling afraid as if something awful might happen: 0 = Not at all Total JEFFREY-7 score (0-4 normal; 5-9 mild; 10-14 moderate; 15-21 severe): 0 Source: Developed by Drs. Dick Mary, Maile House, Aurelio Jacobs and colleagues, with an educational mariana from [employer]. JEFFREY-7 Assessment Billing JEFFREY-7 Assessment Tool: JEFFREY-7 Assessment 36779 Review of Systems Const All systems reviewed & are unremarkable except as noted in HPI and below Card Denies chest pain at rest, Denies chest pain with activity, Denies edema, Denies irregular heart rhythm, Denies claudication, Denies dyspnea, Denies dyspnea on exertion, Denies orthopnea, Denies paroxysmal nocturnal dyspnea and Denies slow heart rate Resp Denies cough, Denies dyspnea and Denies dyspnea on exertion GI Denies abdominal pain, Denies change in bowel habits, Denies excessive flatus, Denies nausea and Denies vomiting Denies urinary hesitancy, Denies urinary incontinence and Denies urinary urgency Musc Denies abnormal gait, Denies atrophy, Denies deformity and Denies limited range of motion Skin/Breast Denies bleeding lesions, Denies changing lesions and Denies rash Neuro Denies abnormal gait, Denies behavioral changes and Denies lack of coordination Psych Denies behavioral changes Physical exam (Primary Care) Vital Signs: Last Vital Signs BP 132/80 07/07/24 08:38 BMI result Body Mass Index 26.8 Tobacco/Smoking Status: Tobacco use Status Tobacco use date assessed 03/30/24 07/07/24 08:44 Patient Tobacco Use Status Former Tobacco user 07/07/24 08:44 Tobacco use type Cigarette 07/07/24 08:44 e-Cigarette/Vaping Use Never Used 07/07/24 08:44 PHQ-9: PHQ-9 Score PHQ-9: Total score 0 07/07/24 09:01 Depression Screening Interpretation: Negative Thrive Assessment: Date of Thrive Assessment Date Thrive assessed 07/07/24 07/07/24 08:44 Currently or been in a relationship where the following occur: I choose not to answer HENAK Head: Yes normal to inspection, Yes normocephalic and Yes atraumatic Ears: external ears normal Eyes General: appearance normal, both eyes and all related structures Eyelids: Yes eyelids normal Conjunctivae: conjunctivae normal Neck Neck: Yes normal visual inspection and Yes supple Resp Effort & Inspection: normal respiratory effort Auscultation: clear to auscultation bilaterally Cardio Jugular venous distension: no JVD Rate: regular rate Rhythm: regular rhythm Heart sounds: S1 normal heart sound present and S2 normal heart sound present GI Inspection: Yes normal to inspection Palpation (GI): Soft to palpation and nontender Auscultation: normal bowel sounds Skin General skin exam: no rashes or lesions noted Neuro General: no focal motor deficits Extrem General: Yes full ROM Psych Appearance: grossly normal Results AMB Hemoglobin A1c AMB Hemoglobin A1c 5.8 % Last Edit by OMI Sullivan on 07/07/24 08:49 Results Reviewed Results Reviewed: Laboratory Last Values Hgb A1c (Clinic) 5.8 % (4.0-6.0) 05/29/25 08:36 Coding Level of Care Code Est Pt Prev Care >65y(10098) Diagnoses Physical exam Z00.00 Type 2 diabetes mellitus without complication, without long-term current use of insulin E11.9 Diabetes mellitus type: type 2 Diabetes mellitus intermodal customer service insulin use: without intermodal customer service use Diabetes mellitus complication status: without complication Additional Codes JEFFREY-7 Assessment Billing - JEFFREY-7 Assessment Tool: JEFFREY-7 Assessment 49539 ([id number]) PHQ-9 - 87773 - PHQ-9 Billing: Yes ([id number]) Time Spent (min) 30 Assessment & Plan Assessment & Plan (1) Physical exam: Code(s): Z00.00 - Encounter for general adult medical examination without abnormal findings Category: Medical (2) Diabetes mellitus: Code(s): E11.9 - Type 2 diabetes mellitus without complications Category: Medical Qualifiers: Diabetes mellitus type: type 2 Diabetes mellitus intermodal customer service insulin use: without intermodal customer service use Diabetes mellitus complication status: without complication Qualified Code(s): E11.9 - Type 2 diabetes mellitus without complications Plan The patient will continue his current regimen of losartan for essential hypertension, metformin for type 2 diabetes, and rosuvastatin for hyperlipidemia. His medication adherence is crucial given the stable control of his conditions. Occasional alcohol intake is noted, and vitamin D supplementation will be maintained due to normal levels. Follow-up is scheduled for October 04 with repeat labs to monitor his health status. Patient was informed and verbally consented to the use of an ambient scribe for clinic note documentation during this visit. I discussed with the patient the importance of continuing his current medication regimen given the stable control of his chronic conditions. We reviewed the risks and benefits of his cholesterol medication, considering the mild elevation of liver enzymes. I emphasized the importance of adhering to his medication schedule and maintaining a healthy lifestyle, including moderation of alcohol intake. We also reviewed his upcoming follow-up appointment on October 04, where laboratory tests will be repeated. The patient expressed understanding and agreement with the plan. Orders: Orders Vitamin D 25-OH Total 3 Months E55.9 - Vitamin D deficiency, unspecified Comprehensive [place]. Panel Fast 3 Months E11.9 - Type 2 diabetes mellitus without complications AMB Hemoglobin A1c Today E11.9 - Type 2 diabetes mellitus without complications Lipid Panel 3 Months E78.5 - Hyperlipidemia, unspecified Microalbumin, Random (w Creat) 3 Months R80.9 - Proteinuria, unspecified Medications: Refilled acetaminophen 1,000 mg (2 x 500 mg) PO Q6H PRN 240 tabs 0RF fever 30 days Patient Instructions: - Continue taking your medications as prescribed. - Limit alcohol consumption to social occasions only. - Maintain a healthy diet and exercise routine. - Attend your follow-up appointment on October 04 for repeat laboratory tests. - Contact the office if you experience any new symptoms or have concerns about your medications.
[2024-07-07 08:38] VITALS: BP 132/80; BMI 26.8
== END 2024-07-07 09:04 | disposition home or self-care (01) ==
LOC: HO.HMCH 08:10
PROVIDERS: PCP Internal Medicine; Visit Provider Internal Medicine
DX: Z00.00 Encounter for general adult medical examination without abnormal findings (principal); E11.9 Type 2 diabetes mellitus without complications

== ENCOUNTER → 2024-07-07 08:10 | Outpatient (BNVA) | payer MEDICAID, SELFPAY | PROVIDERS: PCP Internal Medicine; Visit Provider Internal Medicine | DX: Z00.00 Encounter for general adult medical examination without abnormal findings (principal); E11.9 Type 2 diabetes mellitus without complications; I10 Essential (primary) hypertension; Z79.84 Long term (current) use of oral hypoglycemic drugs; Z79.899 Other long term (current) drug therapy | CPT/HCPCS: 83036; 96127; 99397 ==